=== PATIENT | male | born 1970 | race Caucasian/White ===

== ENCOUNTER 2016-11-13 16:12 | Emergency (ER) | payer MEDICARE, OTHER ==
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
[2016-11-13] MEDS ORDERED: NS 0.9% 1000 ML* 1,000 ML IV ONE (17:08)
[2016-11-13 17:14] LABS: Hematocrit 40 % (42-52); Hemoglobin 13.3 g/dl (14.0-18.0); Mean Corpuscular HGB Conc 34 g/dl (31-36); Mean Corpuscular Hemoglobin 26 pg (27-31); Mean Corpuscular Volume 77 fL (80-94); Mean Platelet Volume 8 um3 (7.4-10.4); Red Blood Count 5.19 10^6/ul (4.0-5.4); Red Cell Distribution Width 18 % (10.5-15); White Blood Count 8.2 10^3/ul (3.5-10.8)
[2016-11-13] MEDS ORDERED: Ondansetron INJ* 2 MG/ML VIAL IV ONE (17:19)
[2016-11-13 17:26] LABS: ALT 14 U/L (7-52); AST 13 U/L (13-39); Albumin 4.1 g/dL (3.2-5.2); Alkaline Phosphatase 72 U/L (34-104); Anion Gap 4 mmol/L (2-11); Blood Urea Nitrogen 11 mg/dL (6-24); C Reactive Protein 13.01 mg/L (< 5.00); CO2 Carbon Dioxide 32 mmol/L (22-32); Calcium 9.6 mg/dL (8.6-10.3); Chloride 100 mmol/L (101-111); Creatine Kinase 40 U/L (10-223); EGFR African American 103.9 (>60); EGFR Non-African American 80.8 (>60); Globulin 3.5 g/dL (2-4); Glucose 156 mg/dL (70-100); Lipase < 10 U/L (11.0-82.0); Magnesium 1.8 mg/dL (1.9-2.7); Sodium 136 mmol/L (133-145); Total Protein 7.6 g/dL (6.4-8.9)
[2016-11-13] MEDS ORDERED: Iohexol 300* (CONTRAST) 10 ML SDV IV ONE (17:29)
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
[2016-11-13 19:06] VITALS: BP 129/92
[2016-11-13] MEDS ORDERED: HYDROcodone/ACETAMIN 5-325 MG* 1 TAB PO ONE (19:06)
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
== END 2016-11-13 19:25 | disposition home or self-care (01) ==
LOC: ED 16:12
DX: S20.219A Contusion of unspecified front wall of thorax, initial encounter (principal); S30.1XXA Contusion of abdominal wall, initial encounter; V89.2XXA Person injured in unspecified motor-vehicle accident, traffic, initial encounter; F41.9 Anxiety disorder, unspecified; Y92.9 Unspecified place or not applicable
CPT/HCPCS: 36415; 70450; 71010; 71260; 72125; 74177; 80053; 82550; 82553; 83605; 83690; 83735; 84484; 85025; 85610; 85730; 86140; 93005; 96360; 96374; 99284; J2405; Q9967

== ENCOUNTER 2017-03-28 11:20 | Emergency (ER) | payer MEDICARE ==
--- NOTE | 2017-03-28 12:57 | UC ---
Throat Pain/Nasal Michele HPI - HPI Summary HPI Summary: 47 y/o male presents to the urgent care c/o sore throat with difficulty swallowing since this morning. Patient states his children also had similar symptoms over the weekend. Pt also states nasal congestion with green discharge , productive cough wit green phlegm and mild Headache. Patient denies fever, SOB, chest pain, N/V/D - History of Current Complaint Chief Complaint: UCRespiratory Stated Complaint: THROAT COMPLAINT Time Seen by Provider: 03/28/17 12:39 Hx Obtained From: Patient Onset/Duration: Sudden Onset, Lasting Hours, Still Present Severity: Moderate Pain Intensity: 4 Pain Scale Used: 0-10 Numeric Cough: Productive - green phlegm Associated Signs & Symptoms: Positive: Dysphagia, Sinus Discomfort, Nasal Discharge - green discahrge. Negative: Hoarseness, Fever, Vomiting, Rash Related History: Seasonal Allergies - Epiglottits Risk Factors Epiglottis Risk Factors: Negative - Allergies/Home Medications Allergies/Adverse Reactions: Allergies Allergy/AdvReac Type Severity Reaction Status Date / Time Erythromycin Allergy Unknown Unknown Verified 03/28/17 11:25 Reaction Details Home Medications: Home Medications Methylphenidate ER TAB* [Concerta ER TAB*] 54 mg PO DAILY 03/28/17 [History Confirmed 03/28/17] busPIRone TAB* [Buspar TAB *] 15 mg PO TID 03/28/17 [History Confirmed 03/28/17] PMH/Surg Hx/FS Hx/Imm Hx Previously Healthy: Yes Other Neurological History: anxiety, ADHD - Surgical History Surgical History: None - Family History Known Family History: Positive: Diabetes Family History: No FHx of psychotic disorders, schizophrenia, mood disorders, bipolar disorders, anxiety disorders, depression, or alcohol abuse. - Social History Occupation: Employed Full-time Lives: With Family Alcohol Use: None Substance Use Type: None Smoking Status (MU): Former Smoker When Did the Patient Quit Smoking/Using Tobacco: OCTOBER 2016 - Immunization History Most Recent Influenza Vaccination: last year Most Recent Tetanus Shot: n/a Most Recent Pneumonia Vaccination: n/a Review of Systems Constitutional: Negative Skin: Negative Eyes: Eye Redness ENT: Sore Throat, Nasal Discharge - green Respiratory: Negative Cardiovascular: Negative Gastrointestinal: Negative Genitourinary: Negative Motor: Negative Neurovascular: Negative Musculoskeletal: Negative Neurological: Negative Psychological: Negative All Other Systems Reviewed And Are Negative: Yes Physical Exam Triage Information Reviewed: Yes Appearance: Well-Appearing, No Pain Distress, Well-Nourished, Obese Vital Signs: Initial Vital Signs Temp 99.4 F 03/28/17 11:24 Pulse 75 03/28/17 11:24 Resp 16 03/28/17 11:24 BP 131/83 03/28/17 11:24 Pulse Ox 100 03/28/17 11:24 Vital Signs Reviewed: Yes Eye Exam: Normal Eyes: Positive: Conjunctiva Inflamed - bilaterally with green discharge, Other: - PERRLA, EOMI ENT: Positive: Hearing grossly normal, Pharyngeal erythema - and exudate, Nasal congestion - with green nasal discharge, TMs normal, Tonsillar swelling, Tonsillar exudate, Other: - maxillary and frontal sinusis tender to palpation. Neck exam: Normal Neck: Positive: Supple, Nontender, Enlarged Nodes @ - anterior cervical lymphnodes tender to palpation Respiratory Exam: Normal Respiratory: Positive: Chest non-tender, Lungs clear, Normal breath sounds Cardiovascular Exam: Normal Cardiovascular: Positive: RRR, No Murmur, Pulses Normal Abdominal Exam: Normal Abdomen Description: Positive: Nontender, No Organomegaly, Soft Bowel Sounds: Positive: Present Musculoskeletal Exam: Normal Musculoskeletal: Positive: Strength Intact, ROM Intact Neurological Exam: Normal Psychological Exam: Normal Skin Exam: Normal Skin: Negative: rashes Throat Pain/Nasal Course/Dx - Course Course Of Treatment: Sore throat: Hx obtained, PE abnormal findings:ENT: Positive: Hearing grossly normal, Pharyngeal erythema - and exudate, Nasal congestion - with green nasal discharge, TMs normal, Tonsillar swelling, Tonsillar exudate.Eyes: Positive: Conjunctiva Inflamed - bilaterally with green discharge, Other: - PERRLA, EOMI Rapid strep ordered. result: negative. Pt Rx Ciprofloxaxin opthalmic drops for both eyes and advised to take Naproxen 500mg PO he has at home BID prn to alleviate symptoms. Pt instructed on medications and advised to increase fluid intake and rest and if symptoms worsen to return to the urgent care or f/u with PCP for furhter evaluation and treatment. Pt understood and agreed. - Differential Dx/Diagnosis Differential Diagnosis/HQI/PQRI: Laryngitis, Otitis Media, Peritonsillar Abscess , Pharyngitis, Tonsillitis, URI Provider Diagnoses: Bilaterally conjunctivitis, viral pharyngitis. Discharge - Discharge Plan Condition: Stable Disposition: HOME Prescriptions: Ciprofloxacin 0.3% OPTH.WILLIAM* [Cipro 0.3% Opth*] 1 drop BOTH EYES Q2H #1 btl Patient Education Materials: Conjunctivitis (ED), Pharyngitis (ED) Referrals: Tre Moon MD [Primary Care Provider] - Additional Instructions: Please take medications as instructed. Take Naproxen you have at home BID to alleviate pain and swelling symptoms. Apply Ciprofloxacin 0.3% ophthalmic drops on both eye q2hrs while awake x 2 days, then q4hrs x 5 days. If you do not improve or if symptoms worsen after the course of antibiotics, you should either follow up with your PCP or return to the urgent care for further evaluation and treatment.
[2017-03-28 13:41] VITALS: BP 141/74
== END 2017-03-28 13:41 | disposition home or self-care (01) ==
LOC: UCEAST 11:20
DX: H10.9 Unspecified conjunctivitis (principal); J02.8 Acute pharyngitis due to other specified organisms; B97.89 Other viral agents as the cause of diseases classified elsewhere; F90.9 Attention-deficit hyperactivity disorder, unspecified type; F41.9 Anxiety disorder, unspecified; Z87.891 Personal history of nicotine dependence
CPT/HCPCS: 87651; 99212; G0463

== ENCOUNTER 2018-04-07 11:47 | Emergency (ER) | payer MEDICARE ==
[2018-04-07 12:02] VITALS: BP 123/81
--- NOTE | 2018-04-07 15:53 | UC ---
Christiano Hernandez Angela, scribed for Mathieu Nuno MD on 04/07/18 at 1218 . Complaint Male HPI - HPI Summary HPI Summary: This pt is a 48 y/o male presenting to [facility] c/o dysuria for the past 3 days. Pt additionally reports urinary frequency and urgency. He states he feels like he is not completely emptying his bladder. Pt has hx of 3-4 UTIs in the past. He notes that today's symptoms feel similar to a prior UTI. Denies back pain, fever , chills, nausea, vomiting. - History of Current Complaint Chief Complaint: UCGU Stated Complaint: UTI Time Seen by Provider: 04/07/18 12:08 Hx Obtained From: Patient Onset/Duration: Lasting Days, Still Present Timing: Lasting Days Severity Currently: None Pain Intensity: 0 Pain Scale Used: 0-10 Numeric Aggravating Factor(s): Voiding Alleviating Factor(s): Nothing Associated Signs And Symptoms: Positive: Dysuria. Negative: Back Pain, Fever - or chills, Nausea, Vomiting(# Of Episodes =) - Allergies/Home Medications Allergies/Adverse Reactions: Allergies Allergy/AdvReac Type Severity Reaction Status Date / Time erythromycin base Allergy Unknown Verified 04/07/18 12:02 Reaction Details Home Medications: Home Medications QUEtiapine TAB* [Seroquel 100 MG *] 100 mg PO BEDTIME 04/07/18 [History Confirmed 04/07/18] PMH/Surg Hx/FS Hx/Imm Hx Other Endocrine History: DENIES: diabetes Other Cardiovascular History: DENIES: HTN - Surgical History Surgical History: None - Family History Known Family History: Positive: Unknown - pt cannot recall FHx, Diabetes Family History: No FHx of psychotic disorders, schizophrenia, mood disorders, bipolar disorders, anxiety disorders, depression, or alcohol abuse. - Social History Alcohol Use: None Substance Use Type: None Smoking Status (MU): Former Smoker When Did the Patient Quit Smoking/Using Tobacco: OCTOBER 2016 - Immunization History Most Recent Influenza Vaccination: last year Most Recent Tetanus Shot: n/a Most Recent Pneumonia Vaccination: n/a Review of Systems Constitutional: Negative Skin: Negative Eyes: Negative ENT: Negative Respiratory: Negative Cardiovascular: Negative Gastrointestinal: Negative Genitourinary: Dysuria, Frequency, Urgency Motor: Negative Neurovascular: Negative Musculoskeletal: Negative Neurological: Negative Psychological: Negative Is Patient Immunocompromised?: No All Other Systems Reviewed And Are Negative: Yes Physical Exam - Summary Physical Exam Summary: VITAL SIGNS: Reviewed. GENERAL: Patient is an obese male who is lying comfortable in the stretcher. Patient is not in any acute respiratory distress. HEAD AND FACE: Normocephalic EYES: PERRLA, EOMI x 2. EARS: Hearing grossly intact. MOUTH: Oropharynx within normal limits. NECK: Supple, trachea is midline, no adenopathy, no JVD, no carotid bruit. CHEST: Symmetric, no tenderness at palpation LUNGS: Clear to auscultation bilaterally. No wheezing or crackles. CVS: Regular rate and rhythm, S1 and S2 present, no murmurs or gallops appreciated. ABDOMEN: Soft, non-tender. Bowel sounds are normal. No abdominal abnormal pulsations. EXTREMITIES: Full ROM in all major joints, no edema, no cyanosis or clubbing. NEURO: Alert and oriented x 3. No acute neurological deficits. Speech is normal and follows commands. SKIN: Dry and warm Triage Information Reviewed: Yes Vital Signs: Initial Vital Signs Temp 98.3 F 04/07/18 11:57 Pulse 85 04/07/18 11:57 Resp 16 04/07/18 11:57 BP 123/81 04/07/18 11:57 Pulse Ox 98 04/07/18 11:57 Vital Signs Reviewed: Yes Complaint Male Course/Dx - Course Course Of Treatment: Pt is a 48 y/o male who presents with dysuria for the past 3 days. Pt additionally reports urinary frequency and urgency. He states he feels like he is not completely emptying his bladder. Pt has hx of 3-4 UTIs in the past. He notes that today's symptoms feel similar to a prior UTI. Denies back pain, fever, chills, nausea, vomiting. POC urine shows 3+ glucose and positive nitrites. Pt will be given a prescription for Ciprofloxacin for a UTI. He will be discharged home with follow up from his PCP for glucose found in his urine. I discussed the urinalysis findings with the patient. Pt was instructed to return to the urgent care or go to ER immediately if any of the symptoms return or worsens. Plan of care was discussed with the patient and pt understands and agrees. All questions were answered to patient satisfaction. There were no further complaints or concerns. Pt is hemodynamically stable, alert and oriented x3. The patient was found to have increased blood pressure in UC. The patient will follow up with PCP for better control of BP. - Differential Dx/Diagnosis Provider Diagnoses: Urinary tract infection. Hyperglosuria Discharge - Sign-Out/Discharge Documenting (check all that apply): Discharge/Admit/Transfer - Discharge - Discharge Plan Condition: Stable Disposition: HOME Prescriptions: Ciprofloxacin TAB* [Cipro 500 MG TAB*] 500 mg PO BID #10 tab Patient Education Materials: Urinary Tract Infection in Men (ED) Referrals: Tre Moon MD [Primary Care Provider] - Additional Instructions: Follow up with your primary care physician for glucose in your urine. FOLLOW UP WITH YOUR PRIMARY CARE PROVIDER WITHIN ONE WEEK FOR HIGH BLOOD PRESSURE NOTED TODAY. RETURN TO URGENT CARE OR THE ED FOR ANY WORSENING OR NEW SYMPTOMS. - Billing Disposition and Condition Condition: STABLE Disposition: Home The documentation as recorded by the Christiano ahn Angela accurately reflects the service I personally performed and the decisions made by , Mathieu Nuno MD.
--- NOTE | 2018-04-08 15:25 | UC ---
- Progress Note Progress Note: Urine final with no growth. Needs f/u with his PCP for glucose found in his urine at day of visit Discharge - Sign-Out/Discharge Documenting (check all that apply): Post-Discharge Follow Up - Discharge Plan Condition: Stable Disposition: HOME Prescriptions: Ciprofloxacin TAB* [Cipro 500 MG TAB*] 500 mg PO BID #10 tab Patient Education Materials: Urinary Tract Infection in Men (ED) Referrals: Tre Moon MD [Primary Care Provider] - Additional Instructions: Follow up with your primary care physician for glucose in your urine. FOLLOW UP WITH YOUR PRIMARY CARE PROVIDER WITHIN ONE WEEK FOR HIGH BLOOD PRESSURE NOTED TODAY. RETURN TO URGENT CARE OR THE ED FOR ANY WORSENING OR NEW SYMPTOMS. - Billing Disposition and Condition Condition: STABLE Disposition: Home
== END 2018-04-07 12:25 | disposition home or self-care (01) ==
LOC: UCEAST 11:47
DX: N39.0 Urinary tract infection, site not specified (principal); R81 Glycosuria; Z87.440 Personal history of urinary (tract) infections; Z88.1 Allergy status to other antibiotic agents; Z87.891 Personal history of nicotine dependence
CPT/HCPCS: 81003; 87086; 99212; G0463

== ENCOUNTER 2018-05-01 09:50 | Day surgery (SDC) | payer MEDICARE ==
[~2018-05-01 09:50] MED LIST: Buffered Lidocaine 0.9% SYRIN* 5 ML/SYR SYRINGE INTRADERM ONE; Sodium Citrate/Citric Acid* 15 ML UDC ONE
[2018-05-01] MEDS: Sodium Citrate/Citric Acid* 15 ML UDC PO ONE (10:01)
[2018-05-01] MEDS ORDERED: Midazolam* 1 MG/ML 2 ML VIAL (2 MG) ONE (11:42)
[2018-05-01] MEDS ORDERED: fentaNYL* 50 MCG/ML 2 ML VIAL (100 MCG VIAL) ONE (11:42)
[2018-05-01] MEDS ORDERED: Bupivacaine 0.5% PF 10 ML VIAL INJ ONE ×3 (11:43→11:53)
[2018-05-01] MEDS ORDERED: Naloxone* 0.4 MG/ML 1 ML VIAL IV PRN (12:15)
[2018-05-01 12:42] VITALS: BP 99/68
--- NOTE | 2018-05-01 23:43 | OP ---
DATE OF OPERATION: 05/01/18 - [facility] DATE OF : 72. SURGEON: Lauro Weeks MD HOUSE REGISTRY RN: FREDERICK Cox ANESTHESIOLOGIST: Dr. Leiva. ANESTHESIA: Local MAC. PRE-OP DIAGNOSES: 1. Right carpal tunnel syndrome. 2. Right de Quervain's disease. POST-OP DIAGNOSES: 1. Right carpal tunnel syndrome. 2. Right de Quervain's disease. OPERATIVE PROCEDURE: 1. Right open carpal tunnel release. 2. Right de Quervain's release. FINDINGS: As expected. ESTIMATED BLOOD LOSS: 2 mL. COMPLICATIONS: None. DESCRIPTION OF PROCEDURE: Alonso was seen in the preoperative holding area. The correct side, site, and procedure were identified. We came back to the operating room where the arm was prepped and draped in the usual fashion. A time-out was performed. The arm was exsanguinated with the Esmarch and the tourniquet was inflated to 250 mmHg. I then made a 2- to 3-cm incision in a standard location for an open carpal tunnel release. Dissection was carried down through the subcutaneous tissue and palmar fascia. The transverse carpal ligament was then released from the distal radial aspect working proximally. When I got proximally, the fascia and subcutaneous tissue was released and retracted ulnarly. The remainder of the transverse carpal ligament and distal antebrachial fascia was released with the tenotomy scissors under direct visualization. I made sure the release was completed distally and proximally. Once there was absolutely no compression on the nerve, the wound was irrigated out and the skin was closed with 4-0 nylon suture. I then made a 2-cm transverse incision over the radial styloid. Full thickness flaps were raised off the first dorsal compartment tendon sheath, it came along the dorsal margin and released the sheath. The release was completed distally and proximally with the tenotomy scissors. There was an accessory compartment and this was released and the septum excised. Once release was completed, we irrigated out the wound. The skin was closed with 4-0 Monocryl suture and Steri -Strip. The wounds were dressed with soft dressings. Tourniquet was deflated and he was taken to the recovery room in stable condition. [id number]/[facility] #: [id number] [facility]
== END 2018-05-01 13:00 | disposition home or self-care (01) ==
LOC: OREAST 09:50
PROVIDERS: ATTEND Orthopaedic Surgery Hand Surgery
DX: G56.01 Carpal tunnel syndrome, right upper limb (principal); M65.4 Radial styloid tenosynovitis [de Quervain]; F41.8 Other specified anxiety disorders; R25.1 Tremor, unspecified; Z72.0 Tobacco use; E66.01 Morbid (severe) obesity due to excess calories; R73.01 Impaired fasting glucose
CPT/HCPCS: A9270-GY; J2250; J3010

== ENCOUNTER 2020-01-26 17:06 | Inpatient (IN) | payer MEDICARE, OTHER ==
--- OUTSIDE RECORDS SUMMARY | 2020-01-26 17:18 | XMS REPORT ---
:1970 Author Organization [facility] Care Team Providers Name Role Phone Kendal Angeles Primary Care Physician Unavailable Allergies, Adverse Reactions, Alerts Allergy Code CodeSystem Reaction Severity Criticality Status Start Substance Date Moderate Medications Medication Medication Medication Start Stop Route Dose Status Fill Code CodeSystem Date Date Instructions prazosin 766824 RxNorm 2019- oral 2 mg completed for 30 10-31- capsule day(s) trazodone 995469 RxNorm 2019- oral 100 mg completed for 30 02-13 11-19 tablet day(s) prazosin 321033 RxNorm 2018-10 2020- oral 2 mg active for 30 10-24- capsule day(s) buspirone 506630 RxNorm 2019- oral 7.5 mg 2 completed Take 2 tablet 02-20- tablet three times three a day for 30 times a day(s) day methylphenidate 5237368 RxNorm 2018-10 2020- oral 54 mg completed for 30 HCl -01 19- tablet day(s) extended release 24hr clonazepam 19741128 RxNorm 2019- oral 1 mg completed for 30 07-14 12-04 tablet day(s) clonazepam 19741128 RxNorm 2018-10 2020- oral 1 mg completed for 30 10-24- tablet day(s) prazosin 451540 RxNorm 2019- oral 2 mg completed for 30 -02 09-04 capsule day(s) gabapentin 522012 RxNorm 2020- oral 800 mg active for 30 - 02-17 tablet day(s) methylphenidate 9668174 RxNorm 2019- oral 54 mg completed for 30 HCl 4-26 06-28 tablet day(s) extended release 24hr methylphenidate 3007324 RxNorm 2019- oral 54 mg completed for 30 HCl 7-02 10-24 tablet day(s) extended release 24hr gabapentin 735930 RxNorm 2019- oral 800 mg completed for 30 02-13 11-19 tablet day(s) methylphenidate 4334541 RxNorm 2019- oral 54 mg completed for 30 HCl -24 12-04 tablet day(s) extended release 24hr clonazepam 562216 RxNorm 2019- oral 1 mg completed for 30 02-13 06-28 tablet day(s) sertraline 373871 RxNorm 2020- oral 100 mg active for 30 10-31-17 tablet day(s) quetiapine 697172 RxNorm 2018- oral 25 mg active for 30 - tablet day(s) clonazepam 841587 RxNorm 2019- oral 1 mg completed for 30 01-13 05-26 tablet day(s) gabapentin 397737 RxNorm 2019- oral 800 mg completed for 30 10-31 07-25 tablet day(s) trazodone 807374 RxNorm 2018-10 2020- oral 100 mg active for 30 11-16-25 tablet day(s) trazodone 909873 RxNorm 2019- oral 100 mg completed for 30 10-31 07-25 tablet day(s) buspirone 392428 RxNorm 2019- oral 15 mg 1 completed Take 1 tablet 02-13 05-03 tablet three times three a day for 30 times a day(s) day methylphenidate 6855114 RxNorm 2019- oral 54 mg completed for 30 HCl 01-13 05-26 tablet day(s) extended release 24hr Nicotrol 2351160 RxNorm 2020- inhl 10 mg active for 30 12-26 02-17 cartridg day(s) e clonazepam 382519 RxNorm 2019- oral 1 mg completed for 30 04-21-24 tablet day(s) Problems Problem Name Code CodeSystem Alternate Alternate Start End Status Narrative Code CodeSystem Date Date 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, unspecified Unspecified 49945888 SNOMED-CT Active anxiety 3-22 disorder 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, 4-12 unspecified Dysthymia 26674840 SNOMED-CT 2018- Active 4-12 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 Relevant diagnostic tests/laboratory data Narrative No Information Procedures Procedure Code CodeSystem Target Date of Status Service Device Device Device Name Site Procedure Delivery Code Name UID Location Psychotherap [id number] SNOMED-CT () 2019-01-30 complete Mental y, 45 04 d Health- minutes with [facility] patient [address], [id number] [id number] Psychotherap [id number] SNOMED-CT () 2019-05-01 complete Mental y, 45 04 d Health- minutes with [facility] patient [address], [id number] [id number] Psychotherap [id number] SNOMED-CT () 2019-06-11 complete Mental y, 45 04 d Health- minutes with [facility] patient [address], [id number] [id number] Psychotherap [id number] SNOMED-CT () 2019-06-25 complete Mental y, 45 04 d Health- minutes with [facility] patient [address], [id number] [id number] Psychotherap [id number] SNOMED-CT () 2019-07-14 complete Mental y, 45 04 d Health- minutes with [facility] patient [address], [id number] Office or [id number] SNOMED-CT () 2019-07-14 complete Mental other 7 d Health- outpatient [facility] visit for [address] established [id number] patient, [phone] which requires at least 2 of these 3 calzada components: An expanded problem focused history; An expanded problem focused examination; Medical decision making of low Office or [id number] SNOMED-CT () 2019-09-08 complete Mental other 7 d Health- outpatient [facility] visit for [address], established [id number] patient, [phone] which requires at least 2 of these 3 calzada components: An expanded problem focused history; An expanded problem focused examination; Medical decision making of low Office or [id number] SNOMED-CT () 2019-06-23 complete Mental other 7 d Health- outpatient [facility] visit for [address], established [id number] patient, [phone] which requires at least 2 of these 3 calzada components: An expanded problem focused history; An expanded problem focused examination; Medical decision making of low Office or [id number] SNOMED-CT () 2019-02-26 complete Mental other 7 d Health- outpatient [facility] visit for [address], established [id number] patient, [phone] which requires at least 2 of these 3 calzada components: An expanded problem focused history; An expanded problem focused examination; Medical decision making of low Office or [id number] SNOMED-CT () 2019-03-30 complete Mental other 6 d Health- outpatient [facility] visit for [address], established [id number] patient, [phone] which requires at least 2 of these 3 calzada components: A problem focused history; A problem focused examination; Straightforw ladonna medical decision making. Counselin Office or [id number] SNOMED-CT () 2019-10-19 complete Mental other 6 d Health- outpatient [facility] visit for [address], established [id number] patient, [phone] which requires at least 2 of these 3 calzada components: A problem focused history; A problem focused examination; Straightforw ladonna medical decision making. Counselin SNOMED-CT () 2019-02-17 complete Mental d Health- [address], [phone] SNOMED-CT () 2019-11-02 complete Mental d Health- [address], [id number] [phone] SNOMED-CT () 2019-01-19 complete Mental d Health[address], [id number] [phone] Encounters/Encounter Diagnoses Encounter Name Encounter Diagnosis Diagnosis Diagnosis Date of Service Code Code Name CodeSystem Diagnosis Delivery Location Psychotherapy [id number] Unspecified SNOMED-CT 2019-11-02 Behavioral Individual 30 anxiety Health min disorder [facility] [address], [place], [phone] Vital Signs No Information Social History Element Description Description Start End Code CodeSystem AdditionalInfo Date Date SexAssignedAtBirth Male 1970-0 M AdministrativeGender 03-22 Hospital Discharge Instructions Reason For Referral Medical Equipment FDA Assessments
[2020-01-26 19:52] LABS: ABS Lymphocytes 0.6 10^3/ul (1.0-4.8); ABS Monocytes 0.7 10^3/ul (0-0.8); ABS Neutrophils 9.1 10^3/ul (1.5-7.7); Eosinophil % 0.2 %; Hematocrit 41 % (42-52); Hemoglobin 14.8 g/dL (14.0-18.0); Lymphocyte % 5.6 %; Mean Corpuscular HGB Conc 36 g/dL (31-36); Mean Corpuscular Hemoglobin 30 pg (27-31); Mean Corpuscular Volume 84 fL (80-94); Mean Platelet Volume 8.3 fL (7.4-10.4); Platelet Count 152 10^3/uL (150-450); Red Blood Count 4.93 10^6 /uL (4.18-5.48); Red Cell Distribution Width 16 % (10-15); White Blood Count 10.5 10^3/uL (3.5-10.8)
[2020-01-26] MEDS ORDERED: NS 0.9% 1000 ML** 1,000 ML IV.FLUID IV ONE (19:55)
--- NOTE | 2020-01-26 20:01 | ED ---
GI/ HPI - HPI Summary HPI Summary: 49 y/o M presenting to [facility] c/o fever, body aches, malaise. Patient developed dysuria 2 weeks ago for which he was seen by his primary care provider. Had urine culture done. Started on abx but doesn't know which one. After taking abx , he didn't actually feel better but was doing ok. Today patient woke up with high fever 103F, body aches, malaise. Called his primary care provider who told patient his urine culture grew fungus. Referred to ED for IV abx. The urine culture he had done on 01/19 grew Sherine glabrata. He denies cough, chest pain, shortness of breath. No recent exposure to confirmed COVID19 case. Placed in respiratory WR d/t fever. Moved to PUI room. Hx diabetes. patient states he was on a diabetic medicine that makes him susceptible to yeast infection which he stopped taking today. patient is a vague historian. Symptoms aggravated by nothing. Symptoms alleviated by nothing. Medications reviewed. Allergies noted. - History of Current Complaint Chief Complaint: EDUrogenitalProblems Time Seen by Provider: 01/26/20 19:57 Stated Complaint: GROIN PAIN/POS FEVER PER PT Hx Obtained From: Patient Onset/Duration: Still Present Timing: Constant Current Severity: Moderate Pain Intensity: 5 Aggravating Factor(s): Nothing Alleviating Factor(s): Nothing - Additional Pertinent History Primary Care Physician: [id number] - Allergy/Home Medications Allergies/Adverse Reactions: Allergies Allergy/AdvReac Type Severity Reaction Status Date / Time erythromycin base Allergy Unknown Verified 05/01/18 10:14 Reaction Details Home Medications: Home Medications Gabapentin CAP(*) [Neurontin 400 mg CAP(*)] 800 mg PO TID cap 10/01/16 [Rx Confirmed 01/26/20] traZODone TAB* [Desyrel TAB*] 100 mg PO BEDTIME tab 10/01/16 [Rx Confirmed 05/09] Methylphenidate ER TAB* [Concerta ER TAB*] 54 mg PO QAM 03/28/17 [History Confirmed 01/26/20] Prazosin 1 mg CAP [Minipress CAP*] 2 mg PO BEDTIME 04/24/18 [History Confirmed 01/26/20] Sertraline* [Zoloft*] 200 mg PO QAM 04/24/18 [History Confirmed 01/26/20] Propranolol 10 mg TAB [Inderal 10 mg TAB] 10 mg PO DAILY 01/26/20 [History Confirmed 01/26/20] clonazePAM TAB(*) [Klonopin TAB(*)] 0.5 mg PO BID MDD 4 01/26/20 [History Confirmed 01/26/20] clonazePAM TAB(*) [Klonopin TAB(*)] 1 mg PO BEDTIME MDD 4 01/26/20 [History Confirmed 01/26/20] diPHENhydraMINE PO* [Benadryl PO 25 MG TAB*] 50 mg PO DAILY PRN 01/26/20 [ History Confirmed 01/26/20] PMH/Surg Hx/FS Hx/Imm Hx Endocrine/Hematology History: Reports: Hx Diabetes Musculoskeletal History: Reports: Hx Arthritis - KNEES-HAS HAD KNEE ARTHROSCOPIES FOR, Hx Tendonitis - RIGHT WRIST Neurological History: Reports: Other Neuro Impairments/Disorders - PTSD Psychiatric History: Reports: Hx Anxiety - ON MEDICATION FOR, Hx Depression - ON MEDICATION FOR, Hx Inpatient Treatment, Hx [facility] Tx - Surgical History Surgery Procedure, Year, and Place: SEPTOPLASTY-20 YEARS AGO. BILATERAL KNEE ARTHROSCOPIES Hx Anesthesia Reactions: No Infectious Disease History: No Infectious Disease History: Denies: Traveled Outside the [place] in Last 30 Days - Family History Known Family History: Positive: Diabetes Family History: No FHx of psychotic disorders, schizophrenia, mood disorders, bipolar disorders, anxiety disorders, depression, or alcohol abuse. - Social History Alcohol Use: None Substance Use Type: Reports: None Hx Tobacco Use: Yes Smoking Status (MU): Former Smoker Amount Used/How Often: 1 PPD X 15 YEARS OFF AND ON Have You Smoked in the Last Year: No Review of Systems - ROS Summary Review of Systems Summary: Home Medications Medication Instructions Recorded Confirmed Type Gabapentin CAP(*) [Neurontin 400 800 mg PO TID cap 10/01/16 01/26/20 Rx mg CAP(*)] traZODone TAB* [Desyrel TAB*] 100 mg PO BEDTIME tab 10/01/16 01/26/20 Rx Methylphenidate ER TAB* [Concerta 54 mg PO QAM 03/28/17 01/26/20 History ER TAB*] Prazosin 1 mg CAP [Minipress CAP*] 2 mg PO BEDTIME 04/24/18 01/26/20 History Sertraline* [Zoloft*] 200 mg PO QAM 04/24/18 01/26/20 History Propranolol 10 mg TAB [Inderal 10 10 mg PO DAILY 01/26/20 01/26/20 History mg TAB] clonazePAM TAB(*) [Klonopin TAB(*)] 0.5 mg PO BID MDD 4 01/26/20 01/26/20 History clonazePAM TAB(*) [Klonopin TAB(*)] 1 mg PO BEDTIME MDD 4 01/26/20 01/26/20 History diPHENhydraMINE PO* [Benadryl PO 50 mg PO DAILY PRN 01/26/20 01/26/20 History 25 MG TAB*] Positive: Fever, Other - malaise Negative: Chest Pain Negative: Shortness Of Breath, Cough Positive: Myalgia All Other Systems Reviewed And Are Negative: Yes Physical Exam - Summary Physical Exam Summary: General: Obese MALE. He is febrile and moderately ill appearing. HEENT: Normocephalic, Atraumatic. Eyes: Conjuctiva normal, PERRL. Oropharynx: Clear, mucous membranes moist, (-) exudates. Neck: Soft, FROM, (-) lymphadenopathy, (-) thyromegaly, (-) JVD. Cardiovascular: Normal sinus rhythm, (-) murmur. Lungs: Clear to auscultation bilaterally (-) wheezes, (-) rales, (-) rhonchi. Abdomen: Soft, non-tender, non-distended, (-) organomegaly, normal bowel sounds. Back: (-) CVA tenderness Extremities: No edema. Skin: Warm, diaphoretic, (-) rash. Neuro: Alert and oriented x3, moves all extremities equally. No ataxia. No gait disturbance. No sensory deficit. Normal strength, normal sensation. Psychiatric: Mood normal, flat affect. Triage Information Reviewed: Yes Vital Signs On Initial Exam: Initial Vitals Temp Pulse Resp BP Pulse Ox 99.5 F 101 32 128/66 94 01/26/20 17:18 01/26/20 17:18 01/26/20 17:18 01/26/20 17:18 01/26/20 17:18 Vital Signs Reviewed: Yes Procedures - Sedation Patient Received Moderate/Deep Sedation with Procedure: No Diagnostics - Vital Signs Vital Signs Temp Pulse Resp BP Pulse Ox 01/26/20 17:18 99.5 F 101 32 128/66 94 - Laboratory Lab Results: Lab Results 01/26/20 Range/Units 19:32 WBC 10.5 (3.5-10.8) 10^3/uL RBC 4.93 (4.18-5.48) 10^6 /uL Hgb 14.8 (14.0-18.0) g/dL Hct 41 L (42-52) % MCV 84 (80-94) fL MCH 30 (27-31) pg MCHC 36 (31-36) g/dL RDW 16 H (10-15) % Plt Count 152 (150-450) 10^3/uL MPV 8.3 (7.4-10.4) fL Neut % (Auto) 87.0 % Lymph % (Auto) 5.6 % [place] % (Auto) 6.9 % Eos % (Auto) 0.2 % Baso % (Auto) 0.3 % Absolute Neuts (auto) 9.1 H (1.5-7.7) 10^3/ul Absolute Lymphs (auto) 0.6 L (1.0-4.8) 10^3/ul Absolute Monos (auto) 0.7 (0-0.8) 10^3/ul Absolute Eos (auto) 0.0 (0-0.6) 10^3/ul Absolute Basos (auto) 0.0 (0-0.2) 10^3/ul Absolute Nucleated RBC 0.0 10^3/ul Nucleated RBC % 0.0 Result Diagrams: 01/26/20 19:32 01/26/20 22:11 Lab Statement: Any lab studies that have been ordered have been reviewed, and results considered in the medical decision making process. - Radiology CXR Radiology Interpretation Completed By: ED Physician - No infiltrate. No pleural effusion. Pending official report. Re-Evaluation - Re-Evaluation First Eval Re-Evaluation Time: 20:05 - aware of glucose 544 GIGU Course/Dx - Course Course Of Treatment: 49-year-old male presents from home with fevers. Patient states he had symptoms of dysuria for about 2 weeks now. Went and saw his PCP and was placed on antibiotics. Unsure which antibiotics. Dysuria never completely went away. Today when he awoke he states he felt awful. High fevers , chills. States his whole body hurts and aches. Exhausted. No chest pain, cough, shortness of breath. No known exposures. Due to fever patient was initially placed in our respiratory waiting room. He is then moved to a room as PUI. On physical exam patient is moderately ill-appearing with diaphoresis. No other obvious abnormalities. Workup demonstrates a normal white count. White cells in his urine. Elevated CRP. Initial blood glucose elevated over 500. Patient put on sepsis protocol receiving aggressive IV hydration and antibiotics. Blood sugar dropped to 300s. Lactic acid stayed normal. Chest x- ray negative. Patient referred to hospitalist for admission. Has been given Zosyn, Vanco, fluconazole in the emergency room. As well as IV fluids. Temperature has decreased. Heart rate now normal. Blood pressure stable. In the ED course, the patient was given normal saline fluids, fluconazole, Tylenol , vancomycin. - Diagnoses Provider Diagnoses: Sepsis, UTI (urinary tract infection) - Physician Notifications Discussed Care Of Patient With: Daniel Greer - Agrees to admit Time Discussed With Above Provider: 22:52 Discharge ED - Sign-Out/Discharge Documenting (check all that apply): Patient Departure - Discharge Plan Condition: Stable Disposition: ADMITTED TO [facility] Forms: COVID-19 Tested & Isolation Referrals: Tre Moon MD [Primary Care Provider] - - Billing Disposition and Condition Condition: STABLE Disposition: Admitted to [facility] - Attestation Statements Document Initiated by Mte: Yes Documenting Scribe: Vicenta Grajeda Provider For Whom Teagan is Documenting (Include Credential): Huma Boyd MD Scribe Attestation: Vicenta Hernandez, scribed for Huma Boyd MD on 01/27/20 at 0010. Scribe Documentation Reviewed: Yes Provider Attestation: The documentation as recorded by the Vicenta ahn accurately reflects the service I personally performed and the decisions made by me, Huma Boyd MD Status of Scribe Document: Viewed
[2020-01-26 20:03] LABS: Albumin 3.9 g/dL (3.2-5.2); Albumin/Globulin Ratio 1.1 (1-3); BUN/Creatinine Ratio 14.4 (8-20); C Reactive Protein 102.61 mg/L (<8.01); Calcium 9.3 mg/dL (8.6-10.3); EGFR African American 92.2 (>60); EGFR Non-African American 76.2 (>60); Globulin 3.4 g/dL (2-4); Potassium 4.5 mmol/L (3.5-5.0); Total Protein 7.3 g/dL (6.4-8.9)
[2020-01-26 20:29] LABS: Activated Partial Thrombo Time 32.3 seconds (26.0-38.0); INR 1.04 (0.82-1.09)
[2020-01-26] MEDS ORDERED: Acetaminophen TAB* 325 MG PO ONE (20:35)
[2020-01-26] MEDS ORDERED: Fluconazole 400 MG IVPREMIX(*) 400 MG/200 ML BAG IVPB SCH (21:00)
[2020-01-26 21:24] LABS: Urine Appearance Turbid; Urine Bilirubin Negative (Negative); Urine Blood Negative (Negative); Urine Color Yellow; Urine Glucose 3+(>=500 mg/dL) (Negative); Urine Ketones Negative (Negative); Urine Nitrite Negative (Negative); Urine Protein Negative (Negative); Urine Specific Gravity 1.028 (1.010-1.030); Urine Urobilinogen Negative (Negative)
[2020-01-26 21:35] LABS: Urine Bacteria Absent (Absent); Urine Red Blood Cell Absent (Absent); Urine White Blood Cell 2+(11-20/hpf) (Absent)
[2020-01-26 21:39] LABS: Influenza A Molecular Negative (Negative); Influenza B Molecular Negative (Negative)
[2020-01-26 22:42] LABS: Calcium 8.6 mg/dL (8.6-10.3)
[2020-01-26 22:47] LABS: BUN/Creatinine Ratio 18.1 (8-20); EGFR African American 119.7 (>60); EGFR Non-African American 98.9 (>60)
[2020-01-26] MEDS ORDERED: Vancomycin(*) 1,000 MG in NS 0.9% 250 ML* 250 ML IV ONE (22:52)
[2020-01-27] MEDS ORDERED: Dextrose 50% Syringe 50 ML* 25 GM/50 ML SYRINGE IV PUSH PRN ×2 (00:17→01:47)
[2020-01-27] MEDS ORDERED: NS 0.9% 1000 ML** 1,000 ML IV SCH (00:30)
--- NOTE | 2020-01-27 00:48 | HP ---
History of Present Illness - History of Present Illness Reason for Visit: Fever, Dysuria History of Present Illness: This is a 49 M with PMH significant for Non Insulin Dependent Diabetes, ADHD, PTSD, Depression, Anxiety and Borderline Personality Disorder presented with fever and dysuria. History is taken from patient himself. According to patient, he is having dysuria for last 2 weeks. He states that he was having burning urination but no increased frequency, incontinence and change in color of urine and he did not have fever at that time. For this symptom he went to his PCP on 01/20/20 and was given Nitrofurantoin and urine culture was sent. Today he got a call from his PCP that his urine is growing fungus(Sherine glabrata) and he needs to go to ED. Patient also states that he woke up this morning with fever, chills and sweating. Maximum recorded temperature was 103 F. It was associated with chills and sweating. He denies abdominal pain, back pain, nausea, vomiting , cough, SOB, sore throat and runny nose. Of note, patient has history of diabetes and is on Metformin for 2-3 years and Farxiga(Dapaglifozin) was started month ago. ED Course In ED, he was febrile, tahcycardic and saturating well on room air. His blood work showed normal WBC, elevated CRP, hyponatremia, normal lactic acid and hyperglycemia. He met sepsis criteria and was given bolus IVF, Fluconazole and Vancomycin. When I saw the patient his temperature was normal as he took Tylenol. SO hospitalist was asked to admit the patient for sepsis secondary to UTI. - Past Medical History Past Medical History: 1. Non Insulin dependent Diabetes Mellitus- On Metformin and Farxiga. 2. ADHD 3. Depression with suicide attempt in past. 4. Anxiety 5. Borderline Personality Disorder. - Past Surgical History Past Surgical History: 1. Right Carpel Tunnel Release - Past Family History Past Family History: Family history positive for Diabetes. Negative for psychiatric disorder. - Past Social History Past Social History: Patient is Senior Care Specialist; currently going to work. He lives with his parents. He is a smoker- 7-10 cigarettes day- quit for 3 years and started again 1 years ago. Occasionally drinks alcohol. Denies recreational drug use. His HCP is his mother and he is full code. Medications: Home Medications Gabapentin CAP(*) [Neurontin 400 mg CAP(*)] 800 mg PO TID cap 10/01/16 [Rx Confirmed 01/27/20] traZODone TAB* [Desyrel TAB*] 100 mg PO BEDTIME tab 10/01/16 [Rx Confirmed 06/09] Methylphenidate ER TAB* [Concerta ER TAB*] 54 mg PO QAM and PO at noon Prazosin 1 mg CAP [Minipress CAP*] 2 mg PO BEDTIME 04/24/18 [History Confirmed 01/27/20] Sertraline* [Zoloft*] 200 mg PO QAM 04/24/18 [History Confirmed 01/27/20] Propranolol 10 mg TAB [Inderal 10 mg TAB] 10 mg PO DAILY 01/26/20 [History Confirmed 01/27/20] clonazePAM TAB(*) [Klonopin TAB(*)] 0.5 mg PO BID MDD 4 01/26/20 [History Confirmed 01/26/20] clonazePAM TAB(*) [Klonopin TAB(*)] 1 mg PO BEDTIME MDD 4 01/26/20 [History Confirmed 01/26/20] diPHENhydraMINE PO* [Benadryl PO 25 MG TAB*] 50 mg PO DAILY PRN 01/26/20 [ History Confirmed 01/27/20] Metformin HCl 1,000 mg PO BID 01/27/20 [History Confirmed 01/27/20] Farxiga 5 mg PO every day Buspirone HCL 10 mg TID Allergies/Adverse Reactions: Allergies Allergy/AdvReac Type Severity Reaction Status Date / Time erythromycin base Allergy Unknown Verified 05/01/18 10:14 Reaction Details Review of Systems - Review of Systems Constitutional: Positive: Fever, Chills, Sweats, Malaise. Negative: Weakness, Other Eyes: Negative: Pain, Vision Change, Conjunctivae Inflammation, Eyelid Inflammation, Redness, Other ENT: Negative: Ear Pain, Ear Discharge, Nose Pain, Nose Discharge, Nose Congestion, Mouth Pain, Mouth Swelling, Throat Pain, Throat Swelling, Other Respiratory: Negative: Cough, Dry, Shortness of Breath, Hemoptysis, SOB with Excertion, Pleuritic Pain, Sputum, Wheezing Cardiovascular: Negative: Chest Pain, Palpitations, Orthopnea, Paroxysmal Noc. Dyspnea, Edema, Light Headedness, Other Gastrointestinal: Negative: Nausea, Vomiting, Abdominal Pain, Diarrhea, Constipation, Melena, Hematochezia, Other Genitourinary: Positive: Dysuria. Negative: Frequency, Incontinence, Hematuria , Retention, Other Musculoskeletal: Negative: Neck Pain, Shoulder Pain, Arm Pain, Back Pain, Hand Pain, Leg Pain, Foot Pain, Other Skin: Negative: Rash, Lesions, Rizwan, Bruising, Other Neurological/Mental Status: Negative: Weakness, Numbness, Incoordination, Change in Speech, Confusion, Seizures, Other Exam Vital Signs: Vital Signs (72 hours) 01/26/20 01/26/20 01/26/20 17:18 19:23 19:24 Temperature 99.5 F Pulse Rate 101 101 Respiratory 32 28 43 Rate Blood Pressure 128/66 114/71 (mmHg) O2 Sat by Pulse 94 95 Oximetry 01/26/20 01/26/20 01/26/20 19:55 20:00 20:24 Temperature Pulse Rate 98 98 99 Respiratory 28 22 52 Rate Blood Pressure 105/86 133/85 (mmHg) O2 Sat by Pulse 93 94 95 Oximetry 01/26/20 01/26/20 01/26/20 21:00 21:03 21:04 Temperature 102.5 F Pulse Rate Respiratory 20 42 Rate Blood Pressure 118/90 (mmHg) O2 Sat by Pulse Oximetry 01/26/20 01/26/20 01/26/20 21:25 21:55 22:00 Temperature Pulse Rate 96 92 92 Respiratory 29 42 41 Rate Blood Pressure 106/62 107/69 (mmHg) O2 Sat by Pulse 96 89 92 Oximetry 01/26/20 01/26/20 01/26/20 22:14 22:25 22:54 Temperature 100.9 F Pulse Rate 88 87 Respiratory 13 33 Rate Blood Pressure 113/61 112/67 (mmHg) O2 Sat by Pulse 96 95 Oximetry 01/26/20 01/26/20 23:00 23:12 Temperature 97.3 F Pulse Rate Respiratory 16 Rate Blood Pressure (mmHg) O2 Sat by Pulse Oximetry Exam: GENERAL APPEARANCE: well-nourished obese male in no acute distress. HEENT: Normocephalic and atraumatic. No scleral icterus. Pupils are equal, round , and reactive to light and accommodation NECK: Supple. Trachea is midline. No evidence of thyroid enlargement. No lymphadenopathy or tenderness. CHEST: Symmetric. Nontender to palpation. LUNGS: Breath sounds are equal bilaterally. No added sounds HEART: Regular rhythm.normal S1 and S2. No murmurs, gallops, or rubs. ABDOMEN: Soft, obese and nontender. No mass, tenderness, guarding, or rebound. No organomegaly or hernia. Bowel sounds are present. No CVA tenderness or flank mass. EXTREMITIES: No swelling, clubbing and cyanosis NEUROLOGIC: No focal sensory or motor deficits are noted. Cranial nerves II through XII are intact. Deep tendon reflexes are intact. Result Diagrams: 01/26/20 19:32 01/26/20 22:11 Additional Lab and Data: Lab Results 01/26/20 Range/Units 19:32 WBC 10.5 (3.5-10.8) 10^3/uL RBC 4.93 (4.18-5.48) 10^6 /uL Hgb 14.8 (14.0-18.0) g/dL Hct 41 L (42-52) % MCV 84 (80-94) fL MCH 30 (27-31) pg MCHC 36 (31-36) g/dL RDW 16 H (10-15) % Plt Count 152 (150-450) 10^3/uL MPV 8.3 (7.4-10.4) fL Neut % (Auto) 87.0 % Lymph % (Auto) 5.6 % [place] % (Auto) 6.9 % Eos % (Auto) 0.2 % Baso % (Auto) 0.3 % Absolute Neuts (auto) 9.1 H (1.5-7.7) 10^3/ul Absolute Lymphs (auto) 0.6 L (1.0-4.8) 10^3/ul Absolute Monos (auto) 0.7 (0-0.8) 10^3/ul Absolute Eos (auto) 0.0 (0-0.6) 10^3/ul Absolute Basos (auto) 0.0 (0-0.2) 10^3/ul Absolute Nucleated RBC 0.0 10^3/ul Nucleated RBC % 0.0 Assessment/Plan - Assessment/Plan Assessment: This is a 49 M with Non insulin dependent Diabetes and multiple mental health issues presented with fever, dysuria, malaise and myalgia and sent by his PCP as his urine grew Sherine. He was found to be in sepsis(met SIRS criteria with fever and tachycardia) and source being UTI secondary to candidal infection. Plan: 1. Sepsis: Met sepsis criteria as per above. He has already received Bolus IVF, fluconazole and vancomycin. Urine Culture in 01/20/20 showed Sherine Glabrata. Unclear why he got fungal UTI; although Farxiga can explain it. But still we will need to rule out other immunosuppressed state so I will send HIV first. We will start him on Echinocandins as available in our pharmacy. We don't think he will need antibiotic right now as we have clear source-Candidal UTI. Pending blood culture. CXR clear- formal read pending. We will continue on maintenance fluid. We will also do Infectious Disease consult. 2. COVID rule out: Patient was kept in fastrack room in ED given his fever and was with other people who are COVID rule out. He is also going to work and is not staying indoor. Given his possible exposure to COVID patient we will rule out COVID. He is saturating well on room air and CXR is normal-formal read pending. 3. Diabetes: He was on Metformin and Farxiga. We will hold his oral meds and start him on Insulin lantus and insulin lispro. His A1C is 9.9 so he will need an endocrine consult and may need Insulin. 3. Hyponatremia: Pseudohyponatremia secondary to hyperglycemia. Corrected serum sodium is 133. 4. ADHD: Continue Concerta. 5. Depression: COntinue sertaline, Prazosin, trazodone, buspar. 6. Essential Tremor: On propanolol. 7. DVT prophylaxis: Moderate risk. We will start him on lovenox. 8. Full code. Attestation Documenting Resident: Dr. Greer Supervising Physician: Dr. Jeffers Attending/Supervising Physician Comment: Patient seen and discussed with Dr. Greer. Agree with assessment and plan. Agree with starting anidulafungin for Sherine UTI. Follow up with ID recommendations Attestation: This service has been performed in part by a resident under the direction of a teaching physician.I, Dr. Jeffers, performed the service, or was physically present during the critical, or calzada portions of the service, furnished by the resident. I participated in the management of the patient.
[2020-01-27] MEDS ORDERED: Caspofungin(NF) 70 MG in NS 0.9% 250 ML* 250 ML IV ONE (01:12)
[2020-01-27] MEDS ORDERED: NS 0.9% 250 ML* 250 ML ONE (01:37)
[2020-01-27] MEDS ORDERED: Anidulafungin* 200 MG in NS 0.9% 250 ML* 200 ML IVPB ONE (02:00)
[2020-01-27] MEDS ORDERED: diPHENhydraMINE PO* 25 MG PO PRN (02:37)
[2020-01-27] MEDS: clonazePAM TAB(*) 1 MG PO SCH ×2 (03:39→20:55)
[2020-01-27] MEDS: Insulin GLARGINE(*) 1 UNITS UNIT SUBCUT SCH (03:40)
[2020-01-27] MEDS: Insulin LISPRO* 1 UNITS UNIT SUBCUT SCH ×7 (03:40→17:42)
[2020-01-27] MEDS ORDERED: Insulin LISPRO* 1 UNITS UNIT SUBCUT SCH (07:30)
[2020-01-27] MEDS: clonazePAM TAB(*) 0.5 MG PO SCH ×2 (07:57→20:55)
[2020-01-27] MEDS: Gabapentin CAP(*) 400 MG PO SCH ×3 (07:58→20:55)
[2020-01-27] MEDS: Sertraline* 100 MG TAB PO SCH (07:58)
[2020-01-27] MEDS: Methylphenidate ER TAB* 18 MG PO SCH (08:00)
[2020-01-27] MEDS: busPIRone TAB* 10 MG PO SCH ×3 (08:02→20:55)
[2020-01-27] MEDS: Enoxaparin(*) 40 MG/0.4 ML SYR SUBCUT SCH (08:02)
[2020-01-27] MEDS: Acetaminophen TAB* 325 MG PO PRN ×4 (09:13→20:54)
[2020-01-27 12:33] LABS: POC SO2 79 %
[2020-01-27] MEDS ORDERED: Insulin GLARGINE(*) 1 UNITS UNIT SUBCUT ONE (13:09)
--- NOTE | 2020-01-27 14:43 | PN ---
Subjective Date of Service: 01/27/20 Interval History: Pt c/o fever, denies SOB, c/o leg muscle pain . Also 2 weeks h/o pain at the tip of his penis when urinating Objective Active Medications: Acetaminophen (Tylenol Tab*) 650 mg PO Q4H PRN PRN Reason: PAIN-MILD/TEMP >/= 100.4 Last Admin: 01/27/20 13:41 Dose: 650 mg Buspirone HCl (Buspar Tab*) 10 mg PO TID [facility] Last Admin: 01/27/20 13:41 Dose: 10 mg Clonazepam (Klonopin Tab(*)) 0.5 mg PO BID [facility] Last Admin: 01/27/20 07:57 Dose: 0.5 mg Clonazepam (Klonopin Tab(*)) 1 mg PO BEDTIME [facility] Last Admin: 01/27/20 03:39 Dose: 1 mg Dextrose (D50w Syringe 50 Ml*) 12.5 gm IV PUSH .FOR FS < 60 - SS PRN PRN Reason: FS < 60 Diphenhydramine HCl (Benadryl Po*) 50 mg PO DAILY PRN PRN Reason: Allergy Symptoms Enoxaparin Sodium (Lovenox(*)) 40 mg SUBCUT Q24H [facility] Last Admin: 01/27/20 08:02 Dose: 40 mg Gabapentin (Neurontin Cap(*)) 800 mg PO TID [facility] Last Admin: 01/27/20 13:40 Dose: 800 mg Insulin Glargine (Lantus(*)) 10 units SUBCUT 0600 [facility] Last Admin: 01/27/20 03:40 Dose: 10 units Insulin Human Lispro (Humalog*) 0 units SUBCUT AC [facility]; Protocol Last Admin: 01/27/20 13:43 Dose: 12 units Insulin Human Lispro (Humalog*) 0 units SUBCUT AC [facility]; Protocol Last Admin: 01/27/20 13:43 Dose: 1 units Methylphenidate HCl (Concerta Er Tab*) 54 mg PO QAM [facility] Last Admin: 01/27/20 08:00 Dose: 54 mg Prazosin HCl (Minipress 1 Mg Cap) 2 mg PO BEDTIME [facility] Propranolol HCl (Inderal 10 Mg Tab) 10 mg PO DAILY [facility] Last Admin: 01/27/20 03:26 Dose: 10 mg Sertraline HCl (Zoloft*) 200 mg PO QAM [facility] Last Admin: 01/27/20 07:58 Dose: 200 mg Trazodone HCl (Desyrel Tab*) 100 mg PO BEDTIME [facility] Vital Signs - 8 hr 01/27/20 01/27/20 01/27/20 07:15 07:57 07:58 Temperature 103.0 F Pulse Rate 95 Respiratory 28 28 28 Rate Blood Pressure 127/48 (mmHg) O2 Sat by Pulse 93 Oximetry 01/27/20 01/27/20 01/27/20 10:28 10:29 10:32 Temperature 101 F Pulse Rate Respiratory 38 38 Rate Blood Pressure (mmHg) O2 Sat by Pulse Oximetry 01/27/20 01/27/20 01/27/20 10:48 12:47 13:40 Temperature 101.1 F Pulse Rate 90 Respiratory 28 36 36 Rate Blood Pressure 111/62 (mmHg) O2 Sat by Pulse 98 Oximetry Oxygen Devices in Use Now: None Appearance: 49 yo M in nAD, aAox3 Eyes: No Scleral Icterus, PERRLA Ears/Nose/Mouth/Throat: NL Teeth, Lips, Gums, Mucous Membranes Moist Neck: NL Appearance and Movements; NL JVP, Trachea Midline Respiratory: Symmetrical Chest Expansion and Respiratory Effort, Clear to Auscultation Cardiovascular: NL Sounds; No Murmurs; No JVD, RRR Abdominal: NL Sounds; No Tenderness; No Distention Lymphatic: No Cervical Adenopathy Extremities: No Edema Skin: No Rash or Ulcers, No Nodules or Sclerosis, - - face flushed Neurological: Alert and Oriented x 3, NL Muscle Strength and Tone Result Diagrams: 01/26/20 19:32 01/26/20 22:11 Additional Lab and Data: Lab Results 01/26/20 Range/Units 19:32 WBC 10.5 (3.5-10.8) 10^3/uL RBC 4.93 (4.18-5.48) 10^6 /uL Hgb 14.8 (14.0-18.0) g/dL Hct 41 L (42-52) % MCV 84 (80-94) fL MCH 30 (27-31) pg MCHC 36 (31-36) g/dL RDW 16 H (10-15) % Plt Count 152 (150-450) 10^3/uL MPV 8.3 (7.4-10.4) fL Neut % (Auto) 87.0 % Lymph % (Auto) 5.6 % [place] % (Auto) 6.9 % Eos % (Auto) 0.2 % Baso % (Auto) 0.3 % Absolute Neuts (auto) 9.1 H (1.5-7.7) 10^3/ul Absolute Lymphs (auto) 0.6 L (1.0-4.8) 10^3/ul Absolute Monos (auto) 0.7 (0-0.8) 10^3/ul Absolute Eos (auto) 0.0 (0-0.6) 10^3/ul Absolute Basos (auto) 0.0 (0-0.2) 10^3/ul Absolute Nucleated RBC 0.0 10^3/ul Nucleated RBC % 0.0 Assess/Plan/Problems-Billing Assessment: 49 yo m with h/o DM2, ADHD, anxiety , depression presents with dysuria and fever - Patient Problems (1) Fever Comment: Fever differential: COVID(pending, CXR shows suspicious infiltrates), vs CAP-will start Azithromycin , vs UTI (C. glabrata on urine cx 01/20/20, but now UA not significantly abnormal to suggest acute infection-d/w ID to d/c d/c Anidulafungin-but pt c/o significant dysuria-will cont till urine cx result) Start Doxycycline for likely PNA (2) DM2 (diabetes mellitus, type 2) Comment: cont ISS, Lantus, may need to restart meformin and add glyburide once clinically more stable anf fever controlled Uncontrolled at home HbA1C 9.9 (3) Depression Comment: cont Zoloft (4) ADHD Comment: cont Concerta (5) DVT prophylaxis Comment: Lovenox Status and Disposition: inpatient
[2020-01-27] MEDS: DOXYcycline IV* 100 MG in NS 0.9% 250 ML* 250 ML IVPB SCH (17:02)
[2020-01-27] MEDS: traZODone TAB* 100 MG PO SCH (20:55)
[2020-01-27] MEDS ORDERED: clonazePAM TAB(*) 1 MG PO SCH (21:00)
[2020-01-28] MEDS ORDERED: Caspofungin(NF) 50 MG in NS 0.9% 250 ML* 250 ML IV SCH (02:00)
[2020-01-28] MEDS ORDERED: Anidulafungin* 100 MG in NS 0.9% 100 ML* 100 ML IVPB SCH (03:00)
[2020-01-28] MEDS: DOXYcycline IV* 100 MG in NS 0.9% 250 ML* 250 ML IVPB SCH ×3 (03:18→22:28)
[2020-01-28 04:50] LABS: BUN/Creatinine Ratio 17.5 (8-20); C Reactive Protein 237.33 mg/L (<8.01); Calcium 8.2 mg/dL (8.6-10.3); EGFR African American 124.8 (>60); EGFR Non-African American 103.2 (>60); Potassium 3.6 mmol/L (3.5-5.0)
[2020-01-28 05:30] LABS: Hematocrit 37 % (42-52); Mean Corpuscular HGB Conc 35 g/dL (31-36); Mean Corpuscular Hemoglobin 29 pg (27-31); Mean Corpuscular Volume 83 fL (80-94); Red Blood Count 4.43 10^6 /uL (4.18-5.48); Red Cell Distribution Width 16 % (10-15); White Blood Count 11.7 10^3/uL (3.5-10.8)
[2020-01-28 05:31] LABS: ABS Monocytes 0.5 10^3/ul (0-0.8); ABS Neutrophils 10.2 10^3/ul (1.5-7.7); ABS Nucleated RBC 0.1 10^3/ul; Lymphocyte % 8.2 %; Nucleated Red Blood Cells % 0.4
[2020-01-28 05:56] LABS: HIV 4th Generation Nonreactive (Nonreactive)
[2020-01-28] MEDS: Insulin GLARGINE(*) 1 UNITS UNIT SUBCUT SCH (06:17)
[2020-01-28] MEDS: Acetaminophen TAB* 325 MG PO PRN ×2 (06:17→21:04)
[2020-01-28] MEDS: Gabapentin CAP(*) 400 MG PO SCH ×3 (08:00→21:15)
[2020-01-28] MEDS: Methylphenidate ER TAB* 18 MG PO SCH (08:01)
[2020-01-28] MEDS: busPIRone TAB* 10 MG PO SCH ×3 (08:02→21:15)
[2020-01-28] MEDS: Sertraline* 100 MG TAB PO SCH (08:02)
[2020-01-28] MEDS: Enoxaparin(*) 40 MG/0.4 ML SYR SUBCUT SCH (08:03)
[2020-01-28] MEDS: clonazePAM TAB(*) 0.5 MG PO SCH ×2 (08:03→21:14)
[2020-01-28] MEDS: Anidulafungin* 100 MG in NS 0.9% 100 ML* 100 ML IVPB SCH (08:04)
[2020-01-28 08:39] LABS: Platelet Count Platelets clumped. 10^3/uL (150-450)
[2020-01-28] MEDS: Insulin LISPRO* 1 UNITS UNIT SUBCUT SCH ×6 (10:31→18:43)
[2020-01-28] MEDS ORDERED: Magnesium Hydroxide LIQ* 30 ML UDC PO PRN (14:11)
[2020-01-28] MEDS ORDERED: Polyethylene Glycol 3350* 17 GM PACKET PO PRN (14:11)
[2020-01-28] MEDS ORDERED: Senna TAB 8.6 mg* TAB PO PRN (14:11)
--- NOTE | 2020-01-28 14:15 | PN ---
Subjective Date of Service: 01/28/20 Interval History: Pt still continues to have fevers at 101. cont to have pain with urination. Denies abd pain, no hematuria noted. Last BM 3 days ago Objective Active Medications: Acetaminophen (Tylenol Tab*) 650 mg PO Q4H PRN PRN Reason: PAIN-MILD/TEMP >/= 100.4 Last Admin: 01/28/20 06:17 Dose: 650 mg Buspirone HCl (Buspar Tab*) 10 mg PO TID [facility] Last Admin: 01/28/20 13:28 Dose: 10 mg Clonazepam (Klonopin Tab(*)) 0.5 mg PO BID [facility] Last Admin: 01/28/20 08:03 Dose: 0.5 mg Clonazepam (Klonopin Tab(*)) 1 mg PO BEDTIME [facility] Last Admin: 01/27/20 20:55 Dose: 1 mg Dextrose (D50w Syringe 50 Ml*) 12.5 gm IV PUSH .FOR FS < 60 - SS PRN PRN Reason: FS < 60 Diphenhydramine HCl (Benadryl Po*) 50 mg PO DAILY PRN PRN Reason: Allergy Symptoms Docusate Sodium (Colace Cap*) 100 mg PO BID [facility] Enoxaparin Sodium (Lovenox(*)) 40 mg SUBCUT Q24H [facility] Last Admin: 01/28/20 08:03 Dose: 40 mg Gabapentin (Neurontin Cap(*)) 800 mg PO TID [facility] Last Admin: 01/28/20 13:28 Dose: 800 mg Anidulafungin 100 mg/ Sodium (Chloride) 130 mls @ 65 mls/hr IVPB Q24H [facility] Last Admin: 01/28/20 08:04 Dose: 65 mls/hr Doxycycline Hyclate 100 mg/ (Sodium Chloride) 250 mls @ 250 mls/hr IVPB Q12H [facility] Last Admin: 01/28/20 03:18 Dose: 250 mls/hr Insulin Glargine (Lantus(*)) 10 units SUBCUT 0600 [facility] Last Admin: 01/28/20 06:17 Dose: 10 units Insulin Human Lispro (Humalog*) 0 units SUBCUT [facility]; Protocol Last Admin: 01/28/20 13:27 Dose: 9 units Insulin Human Lispro (Humalog*) 0 units SUBCUT [facility]; Protocol Last Admin: 01/28/20 13:27 Dose: 5 units Magnesium Hydroxide (Milk Of Magnesia Liq*) 30 ml PO BID [facility] Magnesium Hydroxide (Milk Of Magnesia Liq*) 30 ml PO BID PRN PRN Reason: CONSTIPATION Methylphenidate HCl (Concerta Er Tab*) 54 mg PO QAM [facility] Last Admin: 01/28/20 08:01 Dose: 54 mg Polyethylene Glycol/Electrolytes (Miralax (17 Gm Dose Ajith)) 17 gm PO DAILY PRN PRN Reason: CONSTIPATION Prazosin HCl (Minipress 1 Mg Cap) 2 mg PO BEDTIME [facility] Last Admin: 01/27/20 20:55 Dose: 2 mg Propranolol HCl (Inderal 10 Mg Tab) 10 mg PO DAILY [facility] Last Admin: 01/28/20 08:03 Dose: 10 mg Senna (Senokot 8.6 Mg Tab*) 1 tab PO BEDTIME PRN PRN Reason: CONSTIPATION Sertraline HCl (Zoloft*) 200 mg PO QAM [facility] Last Admin: 01/28/20 08:02 Dose: 200 mg Trazodone HCl (Desyrel Tab*) 100 mg PO BEDTIME [facility] Last Admin: 01/27/20 20:55 Dose: 100 mg Vital Signs - 8 hr 01/28/20 01/28/20 01/28/20 07:55 08:00 08:03 Temperature 101.2 F Pulse Rate 93 Respiratory 36 36 36 Rate Blood Pressure 105/65 (mmHg) O2 Sat by Pulse 94 Oximetry 01/28/20 01/28/20 01/28/20 08:21 10:54 12:50 Temperature 99.9 F Pulse Rate 84 Respiratory 36 32 32 Rate Blood Pressure 100/64 (mmHg) O2 Sat by Pulse 95 Oximetry 01/28/20 13:28 Temperature Pulse Rate Respiratory 32 Rate Blood Pressure (mmHg) O2 Sat by Pulse Oximetry Oxygen Devices in Use Now: None Appearance: 49 yo m in nAD,AAOx3 Eyes: No Scleral Icterus, PERRLA Ears/Nose/Mouth/Throat: NL Teeth, Lips, Gums, Mucous Membranes Moist Neck: NL Appearance and Movements; NL JVP, Trachea Midline Respiratory: Symmetrical Chest Expansion and Respiratory Effort, Clear to Auscultation Cardiovascular: NL Sounds; No Murmurs; No JVD, RRR Abdominal: NL Sounds; No Tenderness; No Distention Lymphatic: No Cervical Adenopathy Extremities: No Edema, No Clubbing, Cyanosis Skin: No Rash or Ulcers, No Nodules or Sclerosis Neurological: Alert and Oriented x 3, NL Muscle Strength and Tone Result Diagrams: 01/28/20 04:24 01/28/20 04:24 Additional Lab and Data: Lab Results 01/26/20 Range/Units 19:32 WBC 10.5 (3.5-10.8) 10^3/uL RBC 4.93 (4.18-5.48) 10^6 /uL Hgb 14.8 (14.0-18.0) g/dL Hct 41 L (42-52) % MCV 84 (80-94) fL MCH 30 (27-31) pg MCHC 36 (31-36) g/dL RDW 16 H (10-15) % Plt Count 152 (150-450) 10^3/uL MPV 8.3 (7.4-10.4) fL Neut % (Auto) 87.0 % Lymph % (Auto) 5.6 % [place]royo % (Auto) 6.9 % Eos % (Auto) 0.2 % Baso % (Auto) 0.3 % Absolute Neuts (auto) 9.1 H (1.5-7.7) 10^3/ul Absolute Lymphs (auto) 0.6 L (1.0-4.8) 10^3/ul Absolute Monos (auto) 0.7 (0-0.8) 10^3/ul Absolute Eos (auto) 0.0 (0-0.6) 10^3/ul Absolute Basos (auto) 0.0 (0-0.2) 10^3/ul Absolute Nucleated RBC 0.0 10^3/ul Nucleated RBC % 0.0 Microbiology and Other Data: Microbiology 01/26/20 20:45 Aerobic Blood Culture - Preliminary Blood Venous No Growth Day 1 Anaerobic Blood Culture - Preliminary No Growth Day 1 01/26/20 19:32 Aerobic Blood Culture - Preliminary Blood Venous No Growth Day 1 Anaerobic Blood Culture - Preliminary No Growth Day 1 Assess/Plan/Problems-Billing Assessment: 49 yo m with h/o DM2, ADHD, anxiety , depression presents with dysuria and fever - Patient Problems (1) Fever Comment: Fever differential: COVID(pending, CXR shows suspicious infiltrates), vs CAP- started doxy on 01/27/20 , vs UTI (C. glabrata on urine cx 01/20/20, but now UA not significantly abnormal to suggest acute infection-d/w ID to d/c Anidulafungin-but pt c/o significant dysuria-will cont till urine cx result) Cont Doxycycline for likely PNA (2) DM2 (diabetes mellitus, type 2) Comment: cont ISS, Lantus, may need to restart meformin and add glyburide once clinically more stable anf fever controlled Uncontrolled at home HbA1C 9.9 (3) Depression Comment: cont Zoloft (4) ADHD Comment: cont Concerta (5) DVT prophylaxis Comment: Lovenox Status and Disposition: inpatient
[2020-01-28] MEDS: Magnesium Hydroxide LIQ* 30 ML UDC PO SCH (21:14)
[2020-01-28] MEDS: clonazePAM TAB(*) 1 MG PO SCH (21:14)
[2020-01-28] MEDS: Docusate CAP* 100 MG PO SCH (21:15)
[2020-01-28] MEDS: traZODone TAB* 100 MG PO SCH (22:16)
[2020-01-29] MEDS: Anidulafungin* 100 MG in NS 0.9% 100 ML* 100 ML IVPB SCH (05:56)
[2020-01-29] MEDS: Insulin GLARGINE(*) 1 UNITS UNIT SUBCUT SCH (06:15)
[2020-01-29] MEDS: Acetaminophen TAB* 325 MG PO PRN ×2 (06:28→14:22)
[2020-01-29 07:04] LABS: Hematocrit 34 % (42-52); Hemoglobin 12.7 g/dL (14.0-18.0); Mean Corpuscular HGB Conc 37 g/dL (31-36); Mean Corpuscular Hemoglobin 31 pg (27-31); Mean Corpuscular Volume 83 fL (80-94); Red Blood Count 4.14 10^6 /uL (4.18-5.48); Red Cell Distribution Width 16 % (10-15); White Blood Count 7.3 10^3/uL (3.5-10.8)
[2020-01-29 07:22] LABS: BUN/Creatinine Ratio 22.7 (8-20); C Reactive Protein 188.5 mg/L (<8.01); Calcium 8.2 mg/dL (8.6-10.3); EGFR African American 134.5 (>60); EGFR Non-African American 111.2 (>60)
[2020-01-29 08:45] LABS: Mean Platelet Volume 9.5 fL (7.4-10.4); Platelet Count 82 10^3/uL (150-450)
[2020-01-29 08:47] LABS: ABS Lymphocytes 1.2 10^3/ul (1.0-4.8); ABS Monocytes 0.7 10^3/ul (0-0.8); ABS Neutrophils 5.4 10^3/ul (1.5-7.7); Eosinophil % 0.3 %; Lymphocyte % 16.7 %; Nucleated Red Blood Cells % 0.2
[2020-01-29] MEDS: Enoxaparin(*) 40 MG/0.4 ML SYR SUBCUT SCH (08:52)
[2020-01-29] MEDS: Magnesium Hydroxide LIQ* 30 ML UDC PO SCH ×2 (08:52→22:12)
[2020-01-29] MEDS: Gabapentin CAP(*) 400 MG PO SCH ×3 (08:53→22:04)
[2020-01-29] MEDS: Sertraline* 100 MG TAB PO SCH (08:58)
[2020-01-29] MEDS: busPIRone TAB* 10 MG PO SCH ×3 (08:58→22:05)
[2020-01-29] MEDS: Docusate CAP* 100 MG PO SCH ×2 (08:58→22:06)
[2020-01-29] MEDS: Insulin LISPRO* 1 UNITS UNIT SUBCUT SCH ×6 (11:34→18:35)
[2020-01-29] MEDS: DOXYcycline IV* 100 MG in NS 0.9% 250 ML* 250 ML IVPB SCH ×2 (11:35→22:27)
[2020-01-29] MEDS: clonazePAM TAB(*) 0.5 MG PO SCH ×2 (11:44→22:20)
[2020-01-29] MEDS: Methylphenidate ER TAB* 18 MG PO SCH (11:54)
--- NOTE | 2020-01-29 13:51 | PN ---
Subjective Date of Service: 01/29/20 Interval History: Pt still c/o pain with urination and intermittent fever. Needed to be on 02 at 1.5 L at night, denies SOB Objective Active Medications: Acetaminophen (Tylenol Tab*) 650 mg PO Q4H PRN PRN Reason: PAIN-MILD/TEMP >/= 100.4 Last Admin: 01/29/20 06:28 Dose: 650 mg Buspirone HCl (Buspar Tab*) 10 mg PO TID [facility] Last Admin: 01/29/20 08:58 Dose: 10 mg Clonazepam (Klonopin Tab(*)) 1 mg PO BEDTIME [facility] Last Admin: 01/28/20 21:14 Dose: 1 mg Clonazepam (Klonopin Tab(*)) 0.5 mg PO BID [facility] Last Admin: 01/29/20 11:44 Dose: Not Given Dextrose (D50w Syringe 50 Ml*) 12.5 gm IV PUSH .FOR FS < 60 - SS PRN PRN Reason: FS < 60 Diphenhydramine HCl (Benadryl Po*) 50 mg PO DAILY PRN PRN Reason: Allergy Symptoms Docusate Sodium (Colace Cap*) 100 mg PO BID [facility] Last Admin: 01/29/20 08:58 Dose: 100 mg Gabapentin (Neurontin Cap(*)) 800 mg PO TID [facility] Last Admin: 01/29/20 08:53 Dose: 800 mg Doxycycline Hyclate 100 mg/ (Sodium Chloride) 250 mls @ 250 mls/hr IVPB 1030, 2230 [facility] Last Admin: 01/29/20 11:35 Dose: 250 mls/hr Insulin Glargine (Lantus(*)) 10 units SUBCUT 0600 [facility] Last Admin: 01/29/20 06:15 Dose: 10 units Insulin Human Lispro (Humalog*) 0 units SUBCUT AC [facility]; Protocol Last Admin: 01/29/20 11:34 Dose: 3 units Insulin Human Lispro (Humalog*) 0 units SUBCUT [facility]; Protocol Last Admin: 01/29/20 11:35 Dose: 3 units Magnesium Hydroxide (Milk Of Magnesia Liq*) 30 ml PO BID [facility] Last Admin: 01/29/20 08:52 Dose: 30 ml Magnesium Hydroxide (Milk Of Magnesia Liq*) 30 ml PO BID PRN PRN Reason: CONSTIPATION Metformin HCl (Glucophage*) 1,000 mg PO BID [facility] Methylphenidate HCl (Concerta Er Tab*) 54 mg PO QAM [facility] Last Admin: 01/29/20 11:54 Dose: 54 mg Polyethylene Glycol/Electrolytes (Miralax (17 Gm Dose Ajith)) 17 gm PO DAILY PRN PRN Reason: CONSTIPATION Prazosin HCl (Minipress 1 Mg Cap) 2 mg PO BEDTIME [facility] Last Admin: 01/28/20 21:16 Dose: 2 mg Propranolol HCl (Inderal 10 Mg Tab) 10 mg PO DAILY [facility] Last Admin: 01/29/20 09:04 Dose: Not Given Senna (Senokot 8.6 Mg Tab*) 1 tab PO BEDTIME PRN PRN Reason: CONSTIPATION Sertraline HCl (Zoloft*) 200 mg PO QAM [facility] Last Admin: 01/29/20 08:58 Dose: 200 mg Trazodone HCl (Desyrel Tab*) 100 mg PO BEDTIME [facility] Last Admin: 01/28/20 22:16 Dose: 100 mg Voriconazole (Vfend (Nf)) 200 mg PO Q12H [facility]; Protocol Vital Signs - 8 hr 01/29/20 01/29/20 01/29/20 08:39 08:53 11:36 Temperature 101.0 F Pulse Rate 92 Respiratory 32 32 32 Rate Blood Pressure 90/50 (mmHg) O2 Sat by Pulse 92 Oximetry 01/29/20 01/29/20 11:44 11:57 Temperature 99.4 F Pulse Rate 92 Respiratory 32 32 Rate Blood Pressure 90/52 (mmHg) O2 Sat by Pulse 94 Oximetry Oxygen Devices in Use Now: None Appearance: 49 yo m in nAD, aAOx3 Eyes: No Scleral Icterus, PERRLA Ears/Nose/Mouth/Throat: NL Teeth, Lips, Gums, Mucous Membranes Moist Neck: NL Appearance and Movements; NL JVP, Trachea Midline Respiratory: Symmetrical Chest Expansion and Respiratory Effort, Clear to Auscultation Cardiovascular: NL Sounds; No Murmurs; No JVD, RRR Abdominal: NL Sounds; No Tenderness; No Distention Lymphatic: No Cervical Adenopathy Extremities: No Edema Skin: No Rash or Ulcers Neurological: Alert and Oriented x 3, NL Muscle Strength and Tone Result Diagrams: 01/29/20 06:26 01/29/20 06:26 Additional Lab and Data: Lab Results 01/26/20 Range/Units 19:32 WBC 10.5 (3.5-10.8) 10^3/uL RBC 4.93 (4.18-5.48) 10^6 /uL Hgb 14.8 (14.0-18.0) g/dL Hct 41 L (42-52) % MCV 84 (80-94) fL MCH 30 (27-31) pg MCHC 36 (31-36) g/dL RDW 16 H (10-15) % Plt Count 152 (150-450) 10^3/uL MPV 8.3 (7.4-10.4) fL Neut % (Auto) 87.0 % Lymph % (Auto) 5.6 % [place]cock % (Auto) 6.9 % Eos % (Auto) 0.2 % Baso % (Auto) 0.3 % Absolute Neuts (auto) 9.1 H (1.5-7.7) 10^3/ul Absolute Lymphs (auto) 0.6 L (1.0-4.8) 10^3/ul Absolute Monos (auto) 0.7 (0-0.8) 10^3/ul Absolute Eos (auto) 0.0 (0-0.6) 10^3/ul Absolute Basos (auto) 0.0 (0-0.2) 10^3/ul Absolute Nucleated RBC 0.0 10^3/ul Nucleated RBC % 0.0 Microbiology and Other Data: Microbiology 01/26/20 20:45 Aerobic Blood Culture - Preliminary Blood Venous No Growth Day 1 Anaerobic Blood Culture - Preliminary No Growth Day 1 01/26/20 19:32 Aerobic Blood Culture - Preliminary Blood Venous No Growth Day 1 Anaerobic Blood Culture - Preliminary No Growth Day 1 Assess/Plan/Problems-Billing Assessment: 49 yo m with h/o DM2, ADHD, anxiety , depression presents with dysuria and fever - Patient Problems (1) Fever Comment: Fever differential: COVID(pending, CXR shows suspicious infiltrates), vs CAP- started doxy on 01/27/20 , vs UTI (C. glabrata on urine cx 01/20/20, 01/26/20 ID Anidulafungin changed to voriconazole. Once COVID neg pt will need renal and bladder US Cont Doxycycline for likely atypical PNA given CXR findings (2) DM2 (diabetes mellitus, type 2) Comment: cont ISS, Lantus, restart meformin today, may need to add glyburide once clinically more stable and fever controlled. He has not been on insulin at home Uncontrolled at home HbA1C 9.9 (3) Depression Comment: cont Zoloft (4) ADHD Comment: cont Concerta (5) Thrombocytopenia Comment: likely sepsis related, d/c Lovenox, cont to monitor (6) Hypoxemia Comment: due to atelectasis vs PNA incentive spiroemtry ordered (7) DVT prophylaxis Comment: Lovenox held due to thrombocytopenia Status and Disposition: inpatient
--- NOTE | 2020-01-29 19:03 | CONS ---
CONSULTATION REPORT: DATE OF CONSULT: 01/29/20 PRIMARY CARE PROVIDER: Dr. Tre Moon. PROVIDER REQUESTING CONSULTATION: Dr. Carey Dorsey. CONSULTING SERVICE: Infectious Diseases. PROVIDER: Lisbeth Reyes NP ATTENDING PROVIDER: Dr. Alonso Esteban* (dictate by Lisbeth Reyes NP). REASON FOR CONSULT: Sherine glabrata urinary tract infection. IMPRESSION: 1. Urinary tract infection. The patient noted to have Sherine glabrata on urine culture performed on 01/20/20 in the setting of dysuria. He had been on a course of nitrofurantoin and continued to have symptoms and presented to the emergency room. Urinalysis at the time of presentation negative for blood, negative for nitrites, 2+ leukocyte esterase, 2+ wbc's, absent for bacteria. Urine culture returned with Sherine glabrata and normal nora. Blood cultures with no growth on day 2. The patient denies abnormal urinary tract or hardware. He has not had any renal imaging. He reports history of 1 or 2 other urinary tract infections in the past. He has currently been on anidulafungin for 3 days. Continues to report dysuria with urination in addition to feeling the need to force himself to urinate. Continues to be intermittently febrile initially with fevers max of 103 with last high fever 2 days ago. Noted to be febrile this morning with a fever of 101. He has mild tachycardia. He is noted to be tachypneic with heart rates in the 30s. CRP elevated at 188.50. Leukocytosis noted yesterday, resolved. He is noted to have thrombocytopenia. He denies any abdominal pain. Reports generalized back pain. He is noted to have right CVA tenderness on examination. 2. Fevers. The patient continues to have intermittent fevers. He had a chest x- ray on admission showing mild patchy alveolar consolidation at the lower lung zones concerning for pneumonia. He was placed on doxycycline. He continues to be febrile with tachypnea and tachycardia. He has intermittently required oxygen via nasal cannula. He had mild leukocytosis that resolved yesterday, elevated CRP, and thrombocytopenia. His CRP is trending down and improving. Temperature max 103 on 01/27/20. COVID testing is pending. His chest x-ray is concerning for possible COVID, although he denies any respiratory symptoms such as shortness of breath, cough, nasal congestion, postnasal drip. 3. Diabetes mellitus type 2. The patient came in on metformin and Farxiga. The Farxiga has been known to cause fungal infections. RECOMMENDATIONS/PLAN: Recommend discontinuing anidulafungin and starting voriconazole 200 mg by mouth twice daily. He should also have a renal bladder ultrasound to evaluate for any abnormalities. We will continue to follow his pending COVID-19 testing. Discontinue doxycycline unless there is a strong suspicion for underlying pneumonia. HISTORY OF PRESENT ILLNESS: Mr. Cool is a 49-year-old male with past medical history significant for diabetes mellitus type 2, depression, anxiety, ADHD, and borderline personality, who initially presented to his primary care provider with complaints of 2 to 3 weeks of burning sensation when urinating and need to force himself to urinate. He saw his PCP on 01/20/20, who diagnosed him with a urinary tract infection and started him on nitrofurantoin. The culture returned with Sherine glabrata. He feels that this is secondary to a side effect from his diabetic medication, Farxiga, which he states that he has stopped taking, but has continued taking his metformin. He reports developing fevers on Saturday, which was 3 days ago with temperature max of 103. He called his primary care provider's office and was instructed to go to the emergency room. While in the emergency room, he had a chest x-ray showing mild patchy alveolar consolidation to lower lung zones concerning for pneumonia. He had blood cultures drawn. Urinalysis showing no blood, no nitrites, 2+ leukocyte esterase , 2+ wbc's, absent rbc's, absent bacteria. No leukocytosis. Glucose of 544. CRP of 102.61. Influenza A and B negative. He was referred to the hospitalist service for admission. While in the hospital, the patient continued to have intermittent fevers with temperature max of 103, last fever this morning of 101. He is noted to be tachycardic and tachypneic with respiratory rates in the 30s, intermittently requiring oxygen starting early this morning. Noted to have mild leukocytosis yesterday with a white blood cell count of 11.7. He is noted to have thrombocytopenia today with a platelet count of 82. Repeat CRP yesterday 237.37 , on recheck today it is 188.50. He has been on doxycycline and anidulafungin. COVID testing pending. HIV testing negative. He reports intermittent fevers with chills while having fevers. He denies shortness of breath, cough, nasal congestion, postnasal drip, abdominal pain, urinary urgency, increased frequency , constipation or diarrhea. Reporting regular bowel movements. Reports lower back pain while resting in bed. He has not been ambulatory much. He reports lightheadedness after urinating. He denies any risk for STIs. He reports generalized joint discomfort, but is able to get up and get to the bathroom. He denies any rash, recent travel. PAST MEDICAL HISTORY: 1. Diabetes mellitus type 2. 2. Depression. 3. Anxiety. 4. ADHD. 5. Borderline personality disorder. PAST SURGICAL HISTORY: 1. Status post carpal tunnel release on the right. 2. Status post arthroscopic surgery on bilateral knees. 3. Status post septoplasty. FAMILY HISTORY: Denies any family history of recurrent or resistant infections , coronary artery disease. Both parents with diabetes and a younger brother. Maternal grandparents with diabetes. Mother with a history of breast cancer. SOCIAL HISTORY: Denies alcohol use. Reports smoking 1 pack a day every 3 years on and off for many years. Denies any recreational drug use. REVIEW OF SYSTEMS: I performed a 10-point review of systems. All the pertinent positives and negatives are mentioned in the history of present illness. The remaining review of systems are negative. PHYSICAL EXAM: Vital Signs: Temperature 101.0, heart rate 92, respiratory rate 32, O2 sat 92% on 2 L via nasal cannula, blood pressure 90/50. General Appearance: The patient is alert, appears to be in no acute distress. Head: Normocephalic, atraumatic. EENT: Extraocular movements are intact. No subconjunctival hemorrhage. Moist mucous membranes. Neck: Supple. No lymphadenopathy. Neurological: Alert and oriented. Cranial nerves II through XII are grossly intact. Moves all extremities. Cardiovascular: Regular rate and rhythm. S1 and S2 present. No murmurs, rubs, or gallops heard. Respiratory: No accessory muscle use. The lungs are clear to auscultation bilaterally. Abdomen: Soft, nondistended. He has mild right CVA tenderness. Extremities: No lower extremity edema. DP pulses are 2+ and symmetric. Musculoskeletal: No clubbing or cyanosis noted. Exhibits good strength in all extremities. No erythema, edema, or crepitus over bilateral ankles, knees, hips , wrists, elbows, or shoulders. He has no tenderness with palpation of the neck or back. He does report some mild tenderness with palpation of the thoracic spine. Psychological: Calm and cooperative. Skin: There are no rashes or abnormalities seen on the exposed skin. DIAGNOSTIC STUDIES/LAB DATA: Sodium 135, potassium 4.0, chloride 101, CO2 of 27 , BUN 17, creatinine 0.75, glucose 173. White blood cell count 7.3, hemoglobin 12.7, hematocrit 34, platelet count 82. CRP 188.50. Influenza A and B negative on admission. HIV negative. Blood cultures with no growth on day 2. Please see impression and recommendations outlined above, recommendations have been discussed with Dr. Carey Dorsey. The case has been discussed with my attending, Dr. Alonso Esteban, who agrees with the plan of care. Reviewed by EMILIANO CRUZ 02/01/20 [id number] #: [id number] ONEL
[2020-01-29] MEDS: metFORMIN* 500 MG TAB PO SCH (22:00)
[2020-01-29] MEDS: VORICONAZOLE 50 MG PO SCH (22:05)
[2020-01-29] MEDS: traZODone TAB* 100 MG PO SCH (22:17)
[2020-01-29] MEDS: clonazePAM TAB(*) 1 MG PO SCH (22:18)
[2020-01-30] MEDS: Insulin GLARGINE(*) 1 UNITS UNIT SUBCUT SCH (05:48)
[2020-01-30 06:32] LABS: Hematocrit 34 % (42-52); Hemoglobin 12.2 g/dL (14.0-18.0); Mean Corpuscular HGB Conc 36 g/dL (31-36); Mean Corpuscular Hemoglobin 30 pg (27-31); Mean Corpuscular Volume 83 fL (80-94); Mean Platelet Volume 8.8 fL (7.4-10.4); Platelet Count 94 10^3/uL (150-450); Red Blood Count 4.07 10^6 /uL (4.18-5.48); Red Cell Distribution Width 16 % (10-15); White Blood Count 6.7 10^3/uL (3.5-10.8)
[2020-01-30 06:42] LABS: BUN/Creatinine Ratio 22.9 (8-20); Calcium 8.7 mg/dL (8.6-10.3); EGFR African American 145.6 (>60); EGFR Non-African American 120.4 (>60); Potassium 3.8 mmol/L (3.5-5.0)
[2020-01-30] MEDS: Methylphenidate ER TAB* 18 MG PO SCH (09:25)
[2020-01-30] MEDS: Sertraline* 100 MG TAB PO SCH (09:25)
[2020-01-30] MEDS: VORICONAZOLE 50 MG PO SCH ×2 (09:28→20:30)
[2020-01-30] MEDS: metFORMIN* 500 MG TAB PO SCH ×2 (09:28→20:32)
[2020-01-30] MEDS: Docusate CAP* 100 MG PO SCH ×2 (09:29→20:31)
[2020-01-30] MEDS: busPIRone TAB* 10 MG PO SCH ×3 (09:29→20:30)
[2020-01-30] MEDS: clonazePAM TAB(*) 0.5 MG PO SCH ×2 (09:29→12:48)
[2020-01-30] MEDS: Gabapentin CAP(*) 400 MG PO SCH ×3 (09:29→20:31)
[2020-01-30] MEDS: Insulin LISPRO* 1 UNITS UNIT SUBCUT SCH ×7 (09:31→17:41)
[2020-01-30] MEDS: DOXYcycline IV* 100 MG in NS 0.9% 250 ML* 250 ML IVPB SCH (11:09)
--- NOTE | 2020-01-30 15:19 | PN ---
Subjective Date of Service: 01/30/20 Interval History: 49 year old man with fever and dysuria, sent to ER by Dr Moon after a UC grew C. glabrata. Difficulty passing urine since these symptoms started, no flank pain. Feeling a little better overall and dysuria decreased. Appetite is good , no fever, rash, or diarrhea. Objective Active Medications: Acetaminophen (Tylenol Tab*) 650 mg PO Q4H PRN PRN Reason: PAIN-MILD/TEMP >/= 100.4 Last Admin: 01/29/20 14:22 Dose: 650 mg Buspirone HCl (Buspar Tab*) 10 mg PO TID [facility] Last Admin: 01/30/20 12:52 Dose: 10 mg Clonazepam (Klonopin Tab(*)) 1 mg PO BEDTIME [facility] Last Admin: 01/29/20 22:18 Dose: 1 mg Clonazepam (Klonopin Tab(*)) 0.5 mg PO 0800,1300 [facility] Last Admin: 01/30/20 12:48 Dose: Not Given Dextrose (D50w Syringe 50 Ml*) 12.5 gm IV PUSH .FOR FS < 60 - SS PRN PRN Reason: FS < 60 Diphenhydramine HCl (Benadryl Po*) 50 mg PO DAILY PRN PRN Reason: Allergy Symptoms Docusate Sodium (Colace Cap*) 100 mg PO BID [facility] Last Admin: 01/30/20 09:29 Dose: 100 mg Gabapentin (Neurontin Cap(*)) 800 mg PO TID [facility] Last Admin: 01/30/20 12:52 Dose: 800 mg Insulin Glargine (Lantus(*)) 10 units SUBCUT 0600 [facility] Last Admin: 01/30/20 05:48 Dose: 10 units Insulin Human Lispro (Humalog*) 0 units SUBCUT AC [facility]; Protocol Last Admin: 01/30/20 12:47 Dose: 9 units Insulin Human Lispro (Humalog*) 0 units SUBCUT AC [facility]; Protocol Last Admin: 01/30/20 12:47 Dose: 1 units Magnesium Hydroxide (Milk Of Magnesia Liq*) 30 ml PO BID PRN PRN Reason: CONSTIPATION Metformin HCl (Glucophage*) 1,000 mg PO BID [facility] Last Admin: 01/30/20 09:28 Dose: 1,000 mg Methylphenidate HCl (Concerta Er Tab*) 54 mg PO QAM [facility] Last Admin: 01/30/20 09:25 Dose: 54 mg Polyethylene Glycol/Electrolytes (Miralax (17 Gm Dose Ajith)) 17 gm PO DAILY PRN PRN Reason: CONSTIPATION Prazosin HCl (Minipress 1 Mg Cap) 2 mg PO BEDTIME [facility] Last Admin: 01/29/20 22:01 Dose: 2 mg Propranolol HCl (Inderal 10 Mg Tab) 10 mg PO DAILY [facility] Last Admin: 01/30/20 09:29 Dose: 10 mg Senna (Senokot 8.6 Mg Tab*) 1 tab PO BEDTIME PRN PRN Reason: CONSTIPATION Sertraline HCl (Zoloft*) 200 mg PO QAM [facility] Last Admin: 01/30/20 09:25 Dose: 200 mg Trazodone HCl (Desyrel Tab*) 100 mg PO BEDTIME [facility] Last Admin: 01/29/20 22:17 Dose: 100 mg Voriconazole (Vfend (Nf)) 200 mg PO Q12H [facility]; Protocol Last Admin: 01/30/20 09:28 Dose: 200 mg Vital Signs - 8 hr 01/30/20 01/30/20 01/30/20 07:15 08:00 09:29 Temperature 36.4 C Pulse Rate 82 Respiratory 22 22 20 Rate Blood Pressure 114/70 (mmHg) O2 Sat by Pulse 93 Oximetry 01/30/20 01/30/20 01/30/20 11:07 11:08 11:15 Temperature 36.4 C Pulse Rate 73 Respiratory 20 20 20 Rate Blood Pressure 95/55 (mmHg) O2 Sat by Pulse 100 Oximetry 01/30/20 01/30/20 01/30/20 12:48 12:52 13:58 Temperature 37.0 C Pulse Rate 81 Respiratory 22 16 26 Rate Blood Pressure 109/74 (mmHg) O2 Sat by Pulse 100 Oximetry 01/30/20 14:49 Temperature Pulse Rate Respiratory 16 Rate Blood Pressure (mmHg) O2 Sat by Pulse Oximetry Oxygen Devices in Use Now: None Appearance: no distress Eyes: PERRLA Ears/Nose/Mouth/Throat: Clear Oropharnyx Neck: NL Appearance and Movements; NL JVP Respiratory: Symmetrical Chest Expansion and Respiratory Effort, Clear to Auscultation Cardiovascular: NL Sounds; No Murmurs; No JVD, RRR Abdominal: NL Sounds; No Tenderness; No Distention Skin: No Rash or Ulcers Neurological: Alert and Oriented x 3, NL Sensation, NL Muscle Strength and Tone Result Diagrams: 01/30/20 06:14 01/30/20 06:14 Additional Lab and Data: Lab Results 01/26/20 Range/Units 19:32 WBC 10.5 (3.5-10.8) 10^3/uL RBC 4.93 (4.18-5.48) 10^6 /uL Hgb 14.8 (14.0-18.0) g/dL Hct 41 L (42-52) % MCV 84 (80-94) fL MCH 30 (27-31) pg MCHC 36 (31-36) g/dL RDW 16 H (10-15) % Plt Count 152 (150-450) 10^3/uL MPV 8.3 (7.4-10.4) fL Neut % (Auto) 87.0 % Lymph % (Auto) 5.6 % [place] % (Auto) 6.9 % Eos % (Auto) 0.2 % Baso % (Auto) 0.3 % Absolute Neuts (auto) 9.1 H (1.5-7.7) 10^3/ul Absolute Lymphs (auto) 0.6 L (1.0-4.8) 10^3/ul Absolute Monos (auto) 0.7 (0-0.8) 10^3/ul Absolute Eos (auto) 0.0 (0-0.6) 10^3/ul Absolute Basos (auto) 0.0 (0-0.2) 10^3/ul Absolute Nucleated RBC 0.0 10^3/ul Nucleated RBC % 0.0 Microbiology and Other Data: Microbiology 01/26/20 20:45 Aerobic Blood Culture - Preliminary Blood Venous No Growth Day 1 Anaerobic Blood Culture - Preliminary No Growth Day 1 01/26/20 19:32 Aerobic Blood Culture - Preliminary Blood Venous No Growth Day 1 Anaerobic Blood Culture - Preliminary No Growth Day 1 Assess/Plan/Problems-Billing Assessment: 49 yo m with h/o DM2, ADHD, anxiety , depression presents with dysuria and fever - Patient Problems (1) Prostatitis, acute Current Visit: Yes Status: Acute Code(s): N41.0 - ACUTE PROSTATITIS SNOMED Code(s): 79591390 Comment: Yeast, continue voriconazole, check US renal/bladder (2) DM2 (diabetes mellitus, type 2) Current Visit: Yes Status: Acute Comment: cont ISS, increase Lantus, metformin restarted, may need to add glyburide once clinically more stable. He has not been on insulin at home Uncontrolled at home HbA1C 9.9 (3) DVT prophylaxis Current Visit: Yes Status: Acute Code(s): Z29.9 - ENCOUNTER FOR PROPHYLACTIC MEASURES, UNSPECIFIED SNOMED Code(s): 547183281 Comment: Lovenox held due to thrombocytopenia (4) Fever Current Visit: Yes Status: Acute Code(s): R50.9 - FEVER, UNSPECIFIED SNOMED Code(s): 067455334 Comment: Fever COVID negative, afebrile 24 hrs and clear alternative source UTI Status and Disposition: inpatient
[2020-01-30] MEDS: traZODone TAB* 100 MG PO SCH (20:30)
[2020-01-30] MEDS: clonazePAM TAB(*) 1 MG PO SCH (20:30)
[2020-01-30] MEDS ORDERED: Ondansetron INJ* 2 MG/ML VIAL IV PRN (23:27)
[2020-01-30] MEDS ORDERED: NS 0.9% 1000 ML** 1,000 ML IV SCH (23:30)
[2020-01-31] MEDS: Insulin GLARGINE(*) 1 UNITS UNIT SUBCUT SCH (06:00)
--- NOTE | 2020-01-31 09:48 | PN ---
Subjective Date of Service: 01/31/20 Interval History: 49 year old diabetic man with Sherine prostatitis; US couldn't get done yesterday, will be done today. Dysuria slowly improving. No abd pain or flank pain. Appetite is good. No fever, rash, or diarrhea. Objective Active Medications: Acetaminophen (Tylenol Tab*) 650 mg PO Q4H PRN PRN Reason: PAIN-MILD/TEMP >/= 100.4 Last Admin: 01/29/20 14:22 Dose: 650 mg Buspirone HCl (Buspar Tab*) 10 mg PO TID [facility] Last Admin: 01/30/20 20:30 Dose: 10 mg Clonazepam (Klonopin Tab(*)) 1 mg PO BEDTIME [facility] Last Admin: 01/30/20 20:30 Dose: 1 mg Clonazepam (Klonopin Tab(*)) 0.5 mg PO 0800,1300 [facility] Last Admin: 01/30/20 12:48 Dose: Not Given Dextrose (D50w Syringe 50 Ml*) 12.5 gm IV PUSH .FOR FS < 60 - SS PRN PRN Reason: FS < 60 Diphenhydramine HCl (Benadryl Po*) 50 mg PO DAILY PRN PRN Reason: Allergy Symptoms Docusate Sodium (Colace Cap*) 100 mg PO BID [facility] Last Admin: 01/30/20 20:31 Dose: 100 mg Gabapentin (Neurontin Cap(*)) 800 mg PO TID [facility] Last Admin: 01/30/20 20:31 Dose: 800 mg Insulin Glargine (Lantus(*)) 15 units SUBCUT 0600 [facility] Last Admin: 01/31/20 06:00 Dose: 15 units Insulin Human Lispro (Humalog*) [address] [facility]; Protocol Last Admin: 01/30/20 16:31 Dose: Not Given Insulin Human Lispro (Humalog*) 0 units SUBCUT AC [facility]; Protocol Last Admin: 01/30/20 17:41 Dose: 3 units Magnesium Hydroxide (Milk Of Magnesia Liq*) 30 ml PO BID PRN PRN Reason: CONSTIPATION Metformin HCl (Glucophage*) 1,000 mg PO BID [facility] Last Admin: 01/30/20 20:32 Dose: 1,000 mg Methylphenidate HCl (Concerta Er Tab*) 54 mg PO QAM [facility] Last Admin: 01/30/20 09:25 Dose: 54 mg Ondansetron HCl (Zofran Inj*) 4 mg IV Q8H PRN PRN Reason: NAUSEA Polyethylene Glycol/Electrolytes (Miralax (17 Gm Dose Ajith)) 17 gm PO DAILY PRN PRN Reason: CONSTIPATION Prazosin HCl (Minipress 1 Mg Cap) 2 mg PO BEDTIME [facility] Last Admin: 01/30/20 20:32 Dose: 2 mg Propranolol HCl (Inderal 10 Mg Tab) 10 mg PO DAILY [facility] Last Admin: 01/31/20 09:10 Dose: Not Given Senna (Senokot 8.6 Mg Tab*) 1 tab PO BEDTIME PRN PRN Reason: CONSTIPATION Sertraline HCl (Zoloft*) 200 mg PO QAM [facility] Last Admin: 01/30/20 09:25 Dose: 200 mg Trazodone HCl (Desyrel Tab*) 100 mg PO BEDTIME [facility] Last Admin: 01/30/20 20:30 Dose: 100 mg Voriconazole (Vfend (Nf)) 200 mg PO Q12H [facility]; Protocol Last Admin: 01/30/20 20:30 Dose: 200 mg Vital Signs - 8 hr 01/31/20 01/31/20 04:53 07:15 Temperature 36.6 C Pulse Rate 70 65 Respiratory 20 20 Rate Blood Pressure 130/74 99/67 (mmHg) O2 Sat by Pulse 98 96 Oximetry Oxygen Devices in Use Now: None Eyes: No Scleral Icterus Ears/Nose/Mouth/Throat: Clear Oropharnyx Neck: Trachea Midline Respiratory: Symmetrical Chest Expansion and Respiratory Effort, Clear to Auscultation Cardiovascular: NL Sounds; No Murmurs; No JVD, RRR Abdominal: NL Sounds; No Tenderness; No Distention, - - no flank tenderness Extremities: No Edema Skin: No Rash or Ulcers Neurological: Alert and Oriented x 3 Result Diagrams: 01/30/20 06:14 01/30/20 06:14 Additional Lab and Data: Lab Results 01/26/20 Range/Units 19:32 WBC 10.5 (3.5-10.8) 10^3/uL RBC 4.93 (4.18-5.48) 10^6 /uL Hgb 14.8 (14.0-18.0) g/dL Hct 41 L (42-52) % MCV 84 (80-94) fL MCH 30 (27-31) pg MCHC 36 (31-36) g/dL RDW 16 H (10-15) % Plt Count 152 (150-450) 10^3/uL MPV 8.3 (7.4-10.4) fL Neut % (Auto) 87.0 % Lymph % (Auto) 5.6 % [place] % (Auto) 6.9 % Eos % (Auto) 0.2 % Baso % (Auto) 0.3 % Absolute Neuts (auto) 9.1 H (1.5-7.7) 10^3/ul Absolute Lymphs (auto) 0.6 L (1.0-4.8) 10^3/ul Absolute Monos (auto) 0.7 (0-0.8) 10^3/ul Absolute Eos (auto) 0.0 (0-0.6) 10^3/ul Absolute Basos (auto) 0.0 (0-0.2) 10^3/ul Absolute Nucleated RBC 0.0 10^3/ul Nucleated RBC % 0.0 Microbiology and Other Data: Microbiology 01/26/20 20:45 Aerobic Blood Culture - Preliminary Blood Venous No Growth Day 1 Anaerobic Blood Culture - Preliminary No Growth Day 1 01/26/20 19:32 Aerobic Blood Culture - Preliminary Blood Venous No Growth Day 1 Anaerobic Blood Culture - Preliminary No Growth Day 1 Assess/Plan/Problems-Billing Assessment: 49 yo m with h/o DM2, ADHD, anxiety , depression presents with dysuria and fever - Patient Problems (1) Prostatitis, acute Current Visit: Yes Status: Acute Code(s): N41.0 - ACUTE PROSTATITIS SNOMED Code(s): 58444947 Comment: Improving, due to Sherine glabrata, continue voriconazole, check US renal/bladder today (2) DM2 (diabetes mellitus, type 2) Current Visit: Yes Status: Acute Comment: cont ISS and lantus Lantus, metformin restarted, may need to add glyburide once clinically more stable. He has not been on insulin at home Uncontrolled at home HbA1C 9.9 (3) DVT prophylaxis Current Visit: Yes Status: Acute Code(s): Z29.9 - ENCOUNTER FOR PROPHYLACTIC MEASURES, UNSPECIFIED SNOMED Code(s): 916913796 Comment: SQ heparin (4) Full code status Current Visit: Yes Status: Acute Code(s): Z78.9 - OTHER SPECIFIED HEALTH STATUS SNOMED Code(s): 632429972 Status and Disposition: inpatient
[2020-01-31] MEDS: Insulin LISPRO* 1 UNITS UNIT SUBCUT SCH ×6 (10:09→17:23)
[2020-01-31] MEDS: clonazePAM TAB(*) 0.5 MG PO SCH ×2 (10:09→12:47)
[2020-01-31] MEDS: metFORMIN* 500 MG TAB PO SCH ×2 (10:10→20:42)
[2020-01-31] MEDS: Docusate CAP* 100 MG PO SCH ×2 (10:10→20:43)
[2020-01-31] MEDS: Gabapentin CAP(*) 400 MG PO SCH ×3 (10:11→20:41)
[2020-01-31] MEDS: Methylphenidate ER TAB* 18 MG PO SCH (10:11)
[2020-01-31] MEDS: Sertraline* 100 MG TAB PO SCH (10:11)
[2020-01-31] MEDS: busPIRone TAB* 10 MG PO SCH ×3 (10:11→20:42)
[2020-01-31] MEDS: VORICONAZOLE 50 MG PO SCH ×2 (10:14→20:39)
[2020-01-31] MEDS: Heparin VIAL(*) 5000 UNITS/ML VIAL (FIVE THOUSAND) SUBCUT SCH ×2 (14:29→22:50)
[2020-01-31] MEDS ORDERED: Nicotine PATCH 14 MG/24 HR* PATCH TRANSDERM SCH (15:00)
[2020-01-31] MEDS ORDERED: Nicotine PATCH 14 MG/24 HR* PATCH TRANSDERM PRN (18:00)
[2020-01-31] MEDS: clonazePAM TAB(*) 1 MG PO SCH (20:41)
[2020-01-31] MEDS: traZODone TAB* 100 MG PO SCH (20:43)
[2020-02-01 05:56] LABS: Hematocrit 33 % (42-52); Hemoglobin 11.6 g/dL (14.0-18.0); Mean Corpuscular HGB Conc 36 g/dL (31-36); Mean Corpuscular Hemoglobin 29 pg (27-31); Mean Corpuscular Volume 83 fL (80-94); Mean Platelet Volume 8.3 fL (7.4-10.4); Platelet Count 169 10^3/uL (150-450); Red Blood Count 3.94 10^6 /uL (4.18-5.48); Red Cell Distribution Width 16 % (10-15); White Blood Count 8.2 10^3/uL (3.5-10.8)
[2020-02-01] MEDS ORDERED: Nicotine Patch Removal NOTE FOLLOW UP SCH (06:00)
[2020-02-01] MEDS: Insulin GLARGINE(*) 1 UNITS UNIT SUBCUT SCH (06:03)
[2020-02-01] MEDS: Heparin VIAL(*) 5000 UNITS/ML VIAL (FIVE THOUSAND) SUBCUT SCH ×2 (06:03→13:11)
[2020-02-01 06:17] LABS: Albumin 3.1 g/dL (3.2-5.2); BUN/Creatinine Ratio 21.2 (8-20); Calcium 9.2 mg/dL (8.6-10.3); EGFR African American 155.9 (>60); EGFR Non-African American 128.8 (>60); Globulin 3.1 g/dL (2-4); Potassium 4.3 mmol/L (3.5-5.0); Total Bilirubin 0.5 mg/dL (0.2-1.0); Total Protein 6.2 g/dL (6.4-8.9)
[2020-02-01] MEDS: Insulin LISPRO* 1 UNITS UNIT SUBCUT SCH ×4 (07:36→12:20)
[2020-02-01] MEDS: clonazePAM TAB(*) 0.5 MG PO SCH ×2 (07:37→13:10)
[2020-02-01] MEDS: Gabapentin CAP(*) 400 MG PO SCH ×2 (09:25→13:11)
[2020-02-01] MEDS: busPIRone TAB* 10 MG PO SCH ×2 (09:25→13:10)
[2020-02-01] MEDS: Methylphenidate ER TAB* 18 MG PO SCH (09:26)
[2020-02-01] MEDS: Sertraline* 100 MG TAB PO SCH (09:26)
[2020-02-01] MEDS: metFORMIN* 500 MG TAB PO SCH (09:26)
[2020-02-01] MEDS: VORICONAZOLE 50 MG PO SCH (09:27)
[2020-02-01] MEDS: Docusate CAP* 100 MG PO SCH (09:29)
--- NOTE | 2020-02-01 10:11 | PN ---
Progress Note - Progress Note Date of Service: 02/01/20 SOAP: Subjective: CC: Sherine Glabrata in urine culture HPI: Mr. Cool is a 49 yo male with PMH significant for DM2, depression, anxiety, ADHD, and borderline personality disorder. Denies fever, chills, ABD pain, nausea, or vomiting. Reports 2 loose stools daily, feels like this is improving. Continues to have dysuria, but feels like this is improving. Objective: Vital Signs - 8 hr 02/01/20 02/01/20 02/01/20 03:02 07:24 07:56 Temperature 97.7 F 98.0 F Pulse Rate 55 50 Respiratory 24 20 16 Rate Blood Pressure 107/65 91/55 (mmHg) O2 Sat by Pulse 95 94 Oximetry Physical Exam: General: NAD, laying in bed Neurological: Alert and Oriented HEENT: Moist MM Cardiovascular: Heart rate regular Respiratory: Lung sounds clear Abdominal: Bowel sounds present; ABD large, soft and non tender. No CVA tenderness Skin: No rash on the exposed skin Laboratory Results - last 24 hr 02/01/20 02/01/20 02/01/20 05:22 05:22 05:55 WBC 8.2 RBC 3.94 L Hgb 11.6 L Hct 33 L MCV 83 MCH 29 MCHC 36 RDW 16 H Plt Count 169 MPV 8.3 Sodium 139 Potassium 4.3 Chloride 106 Carbon Dioxide 27 Anion Gap 6 BUN 14 Creatinine 0.66 L Est GFR ( Amer) 155.9 Est GFR (Non-Af Amer) 128.8 BUN/Creatinine Ratio 21.2 H Glucose 106 H POC Glucose (mg/dL) 109 H Calcium 9.2 Total Bilirubin 0.50 AST 112 H ALT 83 H Alkaline Phosphatase 88 Total Protein 6.2 L Albumin 3.1 L Globulin 3.1 Albumin/Globulin Ratio 1.0 Microbiology 01/26/20 20:45 Aerobic Blood Culture - Final Blood Venous No Growth Day 5 Anaerobic Blood Culture - Final No Growth Day 5 01/26/20 19:32 Aerobic Blood Culture - Final Blood Venous No Growth Day 5 Anaerobic Blood Culture - Final No Growth Day 5 01/26/20 21:06 Urine Culture - Final Urine Sherine Glabrata Normal Marlene Assessment: 1. Prostatitis, culture with sherine glabrata. Blood cultures with no growth on day 5. Afebrile and no leukocytosis. Continues to have dysuria. Denies back or ABD pain. 2. Elevated LFTs. Unclear cause at this time, ? secondary to voriconazole. 3. DM2. Plan: Continue Voriconazole. Discharge plan: Voriconazole 200 mg PO BID for 2 weeks. He should have repeat LFTs later this week. Followup with ID outpatient next week. 25 minutes floor time: > 50 % face to face time spent with the patient discussing discharge plan, need for followup with ID, need for followup labs later this week.
[2020-02-01 11:40] VITALS: BP 116/80
[2020-02-01 14:13] LABS: Urine Appearance Cloudy; Urine Bilirubin Negative (Negative); Urine Blood Negative (Negative); Urine Color Yellow; Urine Glucose 2+(150 mg/dL) (Negative); Urine Ketones Negative (Negative); Urine Nitrite Negative (Negative); Urine Protein Negative (Negative); Urine Specific Gravity 1.011 (1.010-1.030); Urine Urobilinogen Negative (Negative)
[2020-02-01 14:20] LABS: Urine Bacteria Absent (Absent); Urine Red Blood Cell 1+(3-5/hpf) (Absent); Urine White Blood Cell 3+(>20/hpf) (Absent)
--- NOTE | 2020-02-01 16:49 | DS ---
DISCHARGE SUMMARY: ADDENDUM: CONDITION FOR RETURN: Return of fever, difficulty urinating or dysfunction of the Patel catheter. [id number]/[facility] #: [id number]
--- NOTE | 2020-02-01 17:48 | DS ---
CC: Dr. Tre Moon; Dr. Alex Toscano, [facility]; Dr. Alonso Esteban, [facility] Infectious Diseases DISCHARGE SUMMARY: DATE OF ADMISSION: 01/26/20 DATE OF DISCHARGE: 02/01/20 PRIMARY CARE PHYSICIAN: Dr. Tre Moon. REASON FOR ADMISSION AND HOSPITAL COURSE: This is a 49-year-old man with diabetes, who had developed dysuria and fever and found to have Sherine glabrata in a urine culture and was directed to the hospital for admission. He was tested for COVID, which did delay some of his workup and imaging. His COVID test was ultimately negative. He was started on anidulafungin and then transitioned to voriconazole by mouth with resolution in his fever and his dysuria. His course was complicated by thrombocytopenia, which resolved via treatment of his infection. He had a renal ultrasound that showed no hydronephrosis and no nephrolithiasis, no pelvocaliectasis. A postvoid residual showed 1000 cc of urine. He was straight cathed for 1200 cc of urine and then shortly thereafter when a Heller catheter was placed, another 2 L of urine was relieved. I discussed the case with Dr. 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 The patient is in agreement with Heller catheter management, has understanding and able to proceed home. His hemoglobin A1c was 9.9. He is on metformin, had stopped Farxiga on his own volition at home. He was treated with Lantus and sliding scale insulin in addition to metformin. I discussed the case with Dr. Moon who has agreed to resume management on metformin at this point and work with Mr. Cool on alternative agents. He is currently not amenable to starting insulin treatment at home. PHYSICAL EXAM ON DISCHARGE: 02/01/20, vital signs: Temperature is 36.4, heart rate 81, respiratory rate 20, blood pressure 116/80, oxygen saturation 96% on room air. General: He is awake, not in distress. Neurologic: He is oriented x3. Follows all commands. HEENT: There is no conjunctival hemorrhage. Oropharynx without lesions. Neck is supple without masses. Heart: Regular rate and rhythm without murmurs, rubs, or gallops. Lungs are clear to auscultation bilaterally. Abdomen: Soft, obese, nontender, nondistended. Skin : There is no rash or splinter hemorrhage. Musculoskeletal: There is no spinal tenderness to palpation. PERTINENT STUDIES: Renal ultrasound, 01/31/20, no hydronephrosis or nephrolithiasis. PERTINENT LAB TESTS: ALT of 83 today after being normal on 01/26/20 at 15, may be related to voriconazole. Urinalysis here showed leukocyte esterase, white cells. The COVID PCR was negative and an HIV antibody was negative. DISCHARGE DIET: Carb consistent diabetic diet. ACTIVITIES: Return to the activity at baseline as tolerated and may return to work without restriction. ISSUES FOR FOLLOWUP: Repeat liver function tests on 02/04/20. FOLLOWUP: He will have appointment with Dr. Moon in the next week, and he will call Dr. Alicea's office for an appointment in the next week, and my office will contact him for followup next week and to order the liver function recheck this week. DISCHARGE MEDICATION LIST: 1. Voriconazole 200 mg by mouth twice a day for 10 more days. 2. Metformin 1 g by mouth twice daily. 3. Prazosin 2 mg by mouth at bedtime. 4. Gabapentin 800 mg by mouth 3 times a day. 5. Trazodone 100 mg by mouth at bedtime. 6. Sertraline 200 mg by mouth each morning. 7. Propranolol 10 mg by mouth daily. 8. Methylphenidate extended release 54 mg by mouth daily. 9. Klonopin 0.5 mg by mouth twice a day. 10. Klonopin 1 mg by mouth at bedtime. 11. BuSpar 10 mg by mouth 3 times a day. RETURN to ER if fever, heller catheter not functioning [id number]/[facility] #: [id number] [facility]
== END 2020-02-01 16:10 | disposition home or self-care (01) | DRG 872 ==
LOC: ED 17:06 → MED 01-27 00:14 → MEDTELE 01-30 13:10
PROVIDERS: ADMIT Internal Medicine; ATTEND Internal Medicine
DX: A41.9 Sepsis, unspecified organism (principal); N39.0 Urinary tract infection, site not specified; B37.89 Other sites of candidiasis; Z68.41 Body mass index [BMI] 40.0-44.9, adult; E87.1 Hypo-osmolality and hyponatremia; N41.0 Acute prostatitis; J98.11 Atelectasis; R30.0 Dysuria; F90.9 Attention-deficit hyperactivity disorder, unspecified type; E11.65 Type 2 diabetes mellitus with hyperglycemia; F32.9 Major depressive disorder, single episode, unspecified; F41.9 Anxiety disorder, unspecified; F60.3 Borderline personality disorder; F17.210 Nicotine dependence, cigarettes, uncomplicated; R94.5 Abnormal results of liver function studies; E66.9 Obesity, unspecified; Z83.3 Family history of diabetes mellitus; Z79.84 Long term (current) use of oral hypoglycemic drugs; Z79.899 Other long term (current) drug therapy; Z88.8 Allergy status to other drugs, medicaments and biological substances; D69.6 Thrombocytopenia, unspecified; R09.02 Hypoxemia
CPT/HCPCS: 36415; 71045; 76775; 80048; 80053; 81003; 81015; 82803; 83036; 83605; 85025; 85027; 85060; 85610; 85730; 86140; 87040; 87086; 87106; 87389; 87635; 99284; A9270-GY; G2023; J0348; J0637; J1644; J1650; J3370

== ENCOUNTER 2022-06-08 18:23 | Inpatient (IN) ==
[2022-06-08 19:01] LABS: ABS Lymphocytes 1.6 10^3/ul (1.0-4.8); ABS Monocytes 0.7 10^3/ul (0-0.8); ABS Neutrophils 9.9 10^3/ul (1.5-7.7); Eosinophil % 0.4 %; Hematocrit 42 % (42-52); Hemoglobin 14.5 g/dL (14.0-18.0); Mean Corpuscular HGB Conc 35 g/dL (31-36); Mean Corpuscular Hemoglobin 28 pg (27-31); Mean Corpuscular Volume 80 fL (80-94); Nucleated Red Blood Cells % 0.3; Platelet Count 184 10^3/uL (150-450); Red Blood Count 5.19 10^6 /uL (4.18-5.48); Red Cell Distribution Width 17 % (10-15); White Blood Count 12.3 10^3/uL (3.5-10.8)
[2022-06-08] MEDS ORDERED: Morphine 4 MG/ML VIAL (1 ml) IV ONE ×2 (19:17→20:39)
[2022-06-08] MEDS ORDERED: Ondansetron 4 mg VIAL 2 MG/ML 2 ml VIAL IV ONE (19:17)
[2022-06-08 19:32] LABS: ALT 11 U/L (7-52); AST 13 U/L (13-39); Albumin 4.2 g/dL (3.2-5.2); Albumin/Globulin Ratio 1.4 (1-3); Alkaline Phosphatase 79 U/L (35-149); Anion Gap 9 mmol/L (2-11); Blood Urea Nitrogen 11 mg/dL (6-24); C Reactive Protein 4.27 mg/L (<8.01); CO2 Carbon Dioxide 29 mmol/L (22-32); Calcium 9.6 mg/dL (8.6-10.3); Chloride 96 mmol/L (101-111); Globulin 2.9 g/dL (2-4); Lipase < 10 U/L (11.0-82.0); Potassium 4.5 mmol/L (3.5-5.0); Sodium 134 mmol/L (135-145); Total Protein 7.1 g/dL (6.4-8.9)
[2022-06-08 19:36] LABS: Glucose 529 mg/dL (70-100)
[2022-06-08] MEDS ORDERED: Lactated Ringers 1000 ml BAG 1,000 ML IV ONE (19:54)
[2022-06-08] MEDS ORDERED: Iodixanol (CONTRAST) 320 MG/ML 100 ML SDV IV ONE (19:59)
[2022-06-08] MEDS ORDERED: Piperacillin/Tazobac ADVAN 3.375 GM in NS 0.9% 100 ml BAG 100 ML IV ONE (21:55)
[2022-06-08] MEDS ORDERED: Ondansetron 4 mg VIAL 2 MG/ML 2 ml VIAL IV PRN (22:29)
[2022-06-08] MEDS ORDERED: Metoprolol Tartrate 5 mg VIAL 5 ml VIAL (1 mg/ml) IV PRN ×2 (22:36→23:05)
[2022-06-08] MEDS ORDERED: NS 0.9% 1000 ml BAG 1,000 ML IV SCH (22:45)
[2022-06-08] MEDS: HYDROmorphone 1 MG/1 ML SYRINGE IV SLOW PU PRN (22:59)
[2022-06-08] MEDS ORDERED: Insulin GLARGINE 100 un/ml 10 ml VIAL SUBCUT SCH (23:02)
[2022-06-08] MEDS ORDERED: Dextrose 50% Syringe 50 ml 25 GM/50 ML SYRINGE IV PUSH PRN (23:03)
[2022-06-09] MEDS: HYDROmorphone 1 MG/1 ML SYRINGE IV SLOW PU PRN ×3 (02:29→07:41)
[2022-06-09] MEDS: Piperacillin/Tazobactam VIAL 3.375 GM in NS 0.9% 100 ml BAG 100 ML IVPB SCH ×2 (05:19→13:52)
[2022-06-09 05:25] LABS: Hematocrit 42 % (42-52); Hemoglobin 14.6 g/dL (14.0-18.0); Mean Corpuscular HGB Conc 35 g/dL (31-36); Mean Corpuscular Hemoglobin 28 pg (27-31); Mean Corpuscular Volume 80 fL (80-94); Mean Platelet Volume 8.1 fL (7.4-10.4); Platelet Count 254 10^3/uL (150-450); Red Blood Count 5.25 10^6 /uL (4.18-5.48); Red Cell Distribution Width 17 % (10-15); White Blood Count 16.6 10^3/uL (3.5-10.8)
[2022-06-09 05:36] LABS: ALT 11 U/L (7-52); AST 12 U/L (13-39); Albumin 4.1 g/dL (3.2-5.2); Albumin/Globulin Ratio 1.5 (1-3); Alkaline Phosphatase 75 U/L (35-149); Anion Gap 7 mmol/L (2-11); Blood Urea Nitrogen 10 mg/dL (6-24); CO2 Carbon Dioxide 30 mmol/L (22-32); Calcium 9.5 mg/dL (8.6-10.3); Chloride 103 mmol/L (101-111); Globulin 2.7 g/dL (2-4); Glucose 62 mg/dL (70-100); Lipase < 10 U/L (11.0-82.0); Potassium 3.5 mmol/L (3.5-5.0); Sodium 140 mmol/L (135-145); Total Protein 6.8 g/dL (6.4-8.9); eGFR CKD-EPI 106.7 (>60)
[2022-06-09 08:19] LABS: ABS Basophils 0.1 10^3/ul (0-0.2); ABS Eosinophils 0.2 10^3/ul (0-0.6); ABS Lymphocytes 5.7 10^3/ul (1.0-4.8); ABS Monocytes 1.3 10^3/ul (0-0.8); ABS Neutrophils 9.3 10^3/ul (1.5-7.7); Eosinophil % 1.5 %; Lymphocyte % 34.5 %; Nucleated Red Blood Cells % 0.3
[2022-06-09] MEDS ORDERED: Bupivacaine 0.25% EPI 200,000 30 ML SDV ONE (08:19)
[2022-06-09] MEDS ORDERED: Dexamethasone IV 4 MG/ML VIAL 1 ml VIAL ONE ×2 (09:30→10:10)
[2022-06-09] MEDS ORDERED: fentaNYL 100 mcg/2 ml 50 MCG/ML VIAL ONE (09:30)
[2022-06-09] MEDS ORDERED: Metoclopramide 5 MG/ML VIAL (10 mg) ONE ×2 (09:30→10:10)
[2022-06-09] MEDS ORDERED: Midazolam 2 mg/2 ml VIAL 1 mg/ml 2 ml VIAL (2 mg) ONE ×2 (09:30→09:38)
[2022-06-09] MEDS ORDERED: Etomidate 20 mg/10 ml 2 MG/ML 10 ml VIAL ONE (09:30)
[2022-06-09] MEDS ORDERED: Rocuronium 50 mg VIAL 10 mg/ml 5 ml VIAL (50 mg) ONE (09:30)
[2022-06-09] MEDS ORDERED: Propofol 10 MG/ML 20 ML BTL ONE (09:30)
[2022-06-09] MEDS ORDERED: Succinylcholine 200 mg VIAL 20 mg/ml 10 ml VIAL (200 mg) ONE (09:37)
[2022-06-09] MEDS ORDERED: Ondansetron 4 mg VIAL 2 MG/ML 2 ml VIAL ONE (10:10)
[2022-06-09] MEDS ORDERED: Glycopyrrolate IV 0.2 MG/ML 1 ML VIAL ONE (10:10)
[2022-06-09] MEDS ORDERED: HYDROmorphone 0.5 MG/0.5 ML SYRINGE ONE (10:49)
[2022-06-09 15:23] VITALS: BP 92/53
== END 2022-06-09 17:51 | disposition home or self-care (01) | DRG 419 ==
LOC: ED 18:23 → EDHOLD 22:29 → SSU 06-09 01:49
PROVIDERS: ADMIT Surgery; ATTEND Surgery